=== PATIENT | female | born 1960 | race Caucasian/White ===

== ENCOUNTER → 2016-02-29 | Outpatient (CLI) | payer MEDICAID ==
--- NOTE | 2016-03-02 10:12 | MM ---
Reason for exam: screening (asymptomatic). Last mammogram was performed 4 years and 1 month ago. History: Patient is postmenopausal. Physical Findings: A clinical breast exam by your physician is recommended on an annual basis and results should be correlated with mammographic findings. MG 3D Screening Mammo W/Cad Bilateral CC and MLO view(s) were taken. Prior study comparison: January 25, 2012, bilateral digital screening mammo w/CAD. May 19, 2005, bilateral screening mammogram w/CAD. There are scattered fibroglandular densities. Asymmetric breast tissue greater in the left breast. Focal asymmetry left subareolar position. ASSESSMENT: Benign, BI-RAD 2 RECOMMENDATION: Routine screening mammogram of both breasts in 1 year.
== END | disposition home or self-care (01) ==
LOC: RADMAMWWP 10:42
PROVIDERS: ATTEND Family Medicine
DX: Z12.31 Encounter for screening mammogram for malignant neoplasm of breast (principal)
CPT/HCPCS: 77052; 77063; G0202

== ENCOUNTER → 2016-09-12 | Outpatient (CLI) | payer MEDICAID ==
[2016-09-12 10:04] LABS: Basophils # (A) 0.1 k/uL (0-0.2); Basophils % (A) 1 %; CH 31.6; CHCM 33.4; Eosinophils # (A) 0.2 k/uL (0-0.7); Eosinophils % (A) 2 %; HCT 42.2 % (34.0-46.0); HDW 2.14; HGB 14.6 gm/dL (11.4-16.0); Luc # (Auto) 0.18; Luc % (Auto) 3; Lymphocytes # (A) 2.5 k/uL (1.0-4.8); Lymphocytes % (A) 35 %; MCH 32.9 pg (25.0-35.0); MCHC 34.6 g/dL (31.0-37.0); MCV 95.1 fL (80.0-100.0); Mean Platelet Volume 7.1; Monocytes # (A) 0.4 k/uL (0-1.0); Monocytes % (A) 6 %; Neutrophils # (A) 3.9 k/uL (1.3-7.7); Neutrophils % (A) 54 %; RBC 4.44 m/uL (3.80-5.40); RDW 13.3 % (11.5-15.5); WBC 7.1 k/uL (3.8-10.6); WBC (Perox) 6.86
[2016-09-12 10:08] LABS: Anion Gap 10 mmol/L; Blood Urea Nitrogen 14 mg/dL (7-17); C Reactive Protein <5.0 mg/L (<10.0); Calcium 9.4 mg/dL (8.4-10.2); Carbon Dioxide 27 mmol/L (22-30); Chloride 104 mmol/L (98-107); Glucose 90 mg/dL (74-99); Non-African American GFR(MDRD) >60 (>60 ml/min/1.73 sqM); Potassium 4.5 mmol/L (3.5-5.1); Rheumatoid Factor, Qnt 11 IU/mL (<12); Sodium 141 mmol/L (137-145); Uric Acid 3.2 mg/dL (3.7-7.4)
[2016-09-12 12:15] LABS: Erythrocyte Sedimentation Rate 8 mm/hr (0-20)
[2016-09-12 16:19] LABS: ANA w/Reflex to Titer NEGATIVE (NEGATIVE); Cyclic Citrull Pep IgG Unit <0.5 U/mL; Cyclic Citrullinated Pep IgG NEGATIVE (NEGATIVE)
== END | disposition home or self-care (01) ==
LOC: LABWHC1 09:26
PROVIDERS: ATTEND Family Medicine
DX: M13.0 Polyarthritis, unspecified (principal); I10 Essential (primary) hypertension
CPT/HCPCS: 36415; 80048; 84550; 85025; 85652; 86038; 86140; 86200; 86431

== ENCOUNTER → 2017-02-17 | Outpatient (CLI) | payer MEDICAID ==
--- NOTE | 2017-02-17 15:04 | MR ---
EXAMINATION TYPE: MR shoulder LT wo con DATE OF EXAM: 02/17/2017 COMPARISON: NONE HISTORY: Left Shoulder pain x3 months TECHNIQUE: Multiplanar, multisequence imaging of the left shoulder is performed without contrast. FINDINGS: Rotator Cuff: There is abnormal signal at the level of the posterior insertion of the infraspinatus t endon compatible with partial full-thickness tear, there is also tendinosis, fluid signal courses veronica ng the musculotendinous junction of infraspinatus. Some fluid signal courses in the subacromial subde ltoid bursa and also within the musculotendinous junction of supraspinatus Acromioclavicular Joint: Hypertrophic changes present causing some minimal mass effect on the musculo tendinous junction of supraspinatus. Glenohumeral Joint: Intact Labrum: The labrum appears grossly intact given limitation of non-arthrogram study. Biceps Tendon: Fluid signal courses along the biceps tendon which shows a normal position in the bici pital groove compatible with biceps tendinosis. Bone marrow signal: Some pseudocysts present at the posterior humeral head. Other: No additional significant abnormality is appreciated. IMPRESSION: Partial full-thickness tear of the infraspinatus tendon, biceps tendinosis, rotator cuff tendinosis. Correlate for impingement.
== END | disposition home or self-care (01) ==
LOC: RADMRIMAIN 07:07
PROVIDERS: ATTEND Family Medicine
DX: S46.812A Strain of other muscles, fascia and tendons at shoulder and upper arm level, left arm, initial encounter (principal); M67.814 Other specified disorders of tendon, left shoulder

== ENCOUNTER → 2017-09-01 | Outpatient (CLI) | payer MEDICAID ==
[2017-09-01 09:46] LABS: HCT 44.8 % (34.0-46.0); HGB 15.1 gm/dL (11.4-16.0); MCH 31.4 pg (25.0-35.0); MCHC 33.7 g/dL (31.0-37.0); MCV 93.2 fL (80.0-100.0); Mean Platelet Volume 6.6; Platelet Count 351 k/uL (150-450); RBC 4.81 m/uL (3.80-5.40); RDW 13.1 % (11.5-15.5); WBC 7.4 k/uL (3.8-10.6)
[2017-09-01 09:55] LABS: Appearance,Urine Cloudy (Clear); Bacteria,Urine Occasional /hpf; Bilirubin,Urine Negative (Negative); Blood,Urine Moderate (Negative); Color,Urine Yellow; Glucose,Urine (UA) Negative (Negative); Ketones,Urine Trace (Negative); Leukocyte Esterase,Urine Large (Negative); Mucus,Urine Many /hpf; Nitrite,Urine Negative (Negative); PH, Urine 5.5 (5.0-8.0); Protein,Urine 1+ (Negative); RBC,Urine 13 /hpf (0-5); Squamous Epithelial Cell,Urine 12 /hpf (0-4); WBC,Urine 58 /hpf (0-5)
[2017-09-01 10:01] LABS: Carbon Dioxide 29 mmol/L (22-30); Chloride 105 mmol/L (98-107); Glucose 90 mg/dL (74-99); Potassium 5.6 mmol/L (3.5-5.1); Sodium 140 mmol/L (137-145)
[2017-09-01 10:02] LABS: ALT 43 U/L (9-52); AST 31 U/L (14-36); Anion Gap 6 mmol/L; Blood Urea Nitrogen 21 mg/dL (7-17); Calcium 9.8 mg/dL (8.4-10.2); Cholesterol 232 mg/dL (<200); HDL Cholesterol 67 mg/dL (40-60); LDL Cholesterol,Calculated 143 mg/dL (0-99); Triglycerides 108 mg/dL (<150)
== END | disposition home or self-care (01) ==
LOC: LABWHC1 09:27
PROVIDERS: ATTEND Family Medicine
DX: I10 Essential (primary) hypertension (principal); E78.5 Hyperlipidemia, unspecified; R31.1 Benign essential microscopic hematuria
CPT/HCPCS: 36415; 80048; 80061; 81001; 84450; 84460; 85027

== ENCOUNTER → 2017-09-04 | Outpatient (CLI) | payer MEDICAID ==
[2017-09-04 09:57] LABS: Anion Gap 8 mmol/L; Blood Urea Nitrogen 24 mg/dL (7-17); Calcium 9.5 mg/dL (8.4-10.2); Carbon Dioxide 27 mmol/L (22-30); Chloride 106 mmol/L (98-107); Glucose 92 mg/dL (74-99); Potassium 5.4 mmol/L (3.5-5.1); Sodium 141 mmol/L (137-145)
== END | disposition home or self-care (01) ==
LOC: LABWHC1 08:53
PROVIDERS: ATTEND Family Medicine
DX: R89.9 Unspecified abnormal finding in specimens from other organs, systems and tissues (principal)
CPT/HCPCS: 36415; 80048; 87086

== ENCOUNTER → 2017-09-19 | Outpatient (CLI) | payer MEDICAID ==
[2017-09-19 09:32] LABS: Anion Gap 6 mmol/L; Blood Urea Nitrogen 16 mg/dL (7-17); Calcium 9.6 mg/dL (8.4-10.2); Carbon Dioxide 30 mmol/L (22-30); Chloride 104 mmol/L (98-107); Glucose 99 mg/dL (74-99); Potassium 4.8 mmol/L (3.5-5.1); Sodium 140 mmol/L (137-145)
== END | disposition home or self-care (01) ==
LOC: LABWHC1 08:48
PROVIDERS: ATTEND Family Medicine
DX: E87.5 Hyperkalemia (principal)
CPT/HCPCS: 36415; 80048

== ENCOUNTER → 2018-06-19 | Outpatient (CLI) | payer MEDICAID ==
[2018-06-19 10:08] LABS: Basophils # (A) 0.1 k/uL (0-0.2); Basophils % (A) 1 %; Eosinophils # (A) 0.3 k/uL (0-0.7); Eosinophils % (A) 4 %; HCT 42.1 % (34.0-46.0); HGB 13.7 gm/dL (11.4-16.0); Lymphocytes # (A) 2.9 k/uL (1.0-4.8); Lymphocytes % (A) 41 %; MCH 30.9 pg (25.0-35.0); MCHC 32.4 g/dL (31.0-37.0); MCV 95.2 fL (80.0-100.0); Mean Platelet Volume 7.1; Monocytes # (A) 0.3 k/uL (0-1.0); Monocytes % (A) 5 %; Neutrophils # (A) 3.2 k/uL (1.3-7.7); Neutrophils % (A) 46 %; Platelet Count 322 k/uL (150-450); RBC 4.43 m/uL (3.80-5.40); RDW 13.1 % (11.5-15.5)
[2018-06-19 18:09] LABS: Vitamin D 25 Hydroxy 25.2 ng/mL (30.0-100.0)
[2018-06-19 18:20] LABS: Anion Gap 10.1 mmol/L (4.00-12.00); Calcium 9.3 mg/dL (8.7-10.3); Carbon Dioxide 23.9 mmol/L (21.6-31.8); Potassium 4.4 mmol/L (3.5-5.5)
[2018-06-19 18:23] LABS: Hepatitis C IgG Antibody Non-Reactive (Non-Reactive)
== END | disposition home or self-care (01) ==
LOC: LABWHC1 08:17
PROVIDERS: ATTEND Family Medicine
DX: I10 Essential (primary) hypertension (principal); Z13.9 Encounter for screening, unspecified
CPT/HCPCS: 36415; 80048; 82306; 84450; 84460; 85025; 86803

== ENCOUNTER → 2019-10-08 | Outpatient (CLI) | payer MEDICAID ==
[2019-10-08 12:36] LABS: Basophils # (A) 0.1 k/uL (0-0.2); Basophils % (A) 1 %; Eosinophils # (A) 0.2 k/uL (0-0.7); Eosinophils % (A) 3 %; HCT 46.8 % (34.0-46.0); HGB 14.7 gm/dL (11.4-16.0); Lymphocytes # (A) 3.1 k/uL (1.0-4.8); Lymphocytes % (A) 40 %; MCHC 31.4 g/dL (31.0-37.0); MCV 95.5 fL (80.0-100.0); Mean Platelet Volume 7.5; Monocytes # (A) 0.5 k/uL (0-1.0); Monocytes % (A) 6 %; Neutrophils # (A) 3.7 k/uL (1.3-7.7); Neutrophils % (A) 47 %; Platelet Count 357 k/uL (150-450); RBC 4.91 m/uL (3.80-5.40); RDW 12.6 % (11.5-15.5); WBC 7.8 k/uL (3.8-10.6)
[2019-10-08 20:43] LABS: African American GFR (CKD) 92.9 (60.0-200.0); Anion Gap 10.6 mmol/L (4.00-12.00); BUN/Creat Ratio 27.5 Ratio (12.00-20.00); Calcium 9.7 mg/dL (8.7-10.3); Carbon Dioxide 25.4 mmol/L (21.6-31.8); Chol/HDL Ratio 3.56; LDL Cholesterol,Calculated 136.8 mg/dL (0.0-131.0); Non-African American GFR(CKD) 80.1 (60.0-200.0); Potassium 4.7 mmol/L (3.5-5.5); VLDL Calculation 24.2 mg/dL (5.00-40.00)
[2019-10-08 22:22] LABS: Hemoglobin A1C 5.8 % (4.0-6.0)
== END | disposition home or self-care (01) ==
LOC: LABWHC1 11:24
PROVIDERS: ATTEND Family Medicine
DX: I10 Essential (primary) hypertension (principal); E66.9 Obesity, unspecified; E55.9 Vitamin D deficiency, unspecified; E78.5 Hyperlipidemia, unspecified
CPT/HCPCS: 36415; 80048; 80061; 82306; 83036; 84443; 84450; 84460; 85025

== ENCOUNTER → 2020-04-19 | Outpatient (CLI) | payer MEDICAID ==
[2020-04-19 08:57] LABS: Appearance,Urine Clear (Clear); Bilirubin,Urine Negative (Negative); Blood,Urine Moderate (Negative); Color,Urine Yellow; Glucose,Urine (UA) Negative (Negative); Hyaline Casts,Urine 1 /lpf (0-2); Ketones,Urine Trace (Negative); Leukocyte Esterase,Urine Moderate (Negative); Mucus,Urine Moderate /hpf; Nitrite,Urine Negative (Negative); PH, Urine 5.5 (5.0-8.0); Protein,Urine Trace (Negative); RBC,Urine 8 /hpf (0-5); Specific Gravity,Urine 1.032 (1.001-1.035); Squamous Epithelial Cell,Urine 1 /hpf (0-4); Urobilinogen,Urine <2.0 mg/dL (<2.0); WBC,Urine 9 /hpf (0-5)
[2020-04-19 15:02] LABS: HCT 43.8 % (37.2-46.3); HGB 14.1 g/dL (12.0-15.0); MCH 31.2 pg (27.0-32.0); MCHC 32.2 g/dL (32.0-37.0); MCV 96.9 fL (80.0-97.0); Platelet Count 361 X 10*3/uL (140-440); RBC 4.52 X 10*6/uL (4.10-5.20); WBC 6.82 X 10*3/uL (4.50-10.00)
[2020-04-19 15:51] LABS: African American GFR (CKD) 92.2 (60.0-200.0); Anion Gap 7.7 mmol/L (4.00-12.00); BUN/Creat Ratio 28.75 Ratio (12.00-20.00); Calcium 9.4 mg/dL (8.7-10.3); Carbon Dioxide 26.3 mmol/L (21.6-31.8); Chol/HDL Ratio 3.95; LDL Cholesterol,Calculated 144.8 mg/dL (0.0-131.0); Non-African American GFR(CKD) 79.6 (60.0-200.0); Potassium 4.8 mmol/L (3.5-5.5); VLDL Calculation 17.2 mg/dL (5.00-40.00)
[2020-04-19 19:18] LABS: Hemoglobin A1C 5.7 % (4.0-6.0)
== END | disposition home or self-care (01) ==
LOC: LABWHC1 08:16
PROVIDERS: ATTEND Family Medicine
DX: E55.9 Vitamin D deficiency, unspecified (principal); I10 Essential (primary) hypertension; E66.3 Overweight
CPT/HCPCS: 36415; 80048; 80061; 81001; 82306; 83036; 84450; 84460; 85027

== ENCOUNTER → 2020-07-07 | Outpatient (CLI) | payer MEDICAID ==
--- NOTE | 2020-07-08 14:52 | MM ---
Reason for exam: screening (asymptomatic). Last mammogram was performed 4 years and 4 months ago. History: Patient is postmenopausal. Physical Findings: A clinical breast exam by your physician is recommended on an annual basis and results should be correlated with mammographic findings. MG 3D Screening Mammo W/Cad Bilateral CC and MLO view(s) were taken. Prior study comparison: February 29, 2016, bilateral MG 3d screening mammo w/cad. January 25, 2012, bilateral digital screening mammo w/CAD. The breast tissue is heterogeneously dense. This may lower the sensitivity of mammography. Stable benign calcifications. There is no discrete abnormality. No significant changes when compared with prior studies. ASSESSMENT: Benign, BI-RAD 2 RECOMMENDATION: Routine screening mammogram of both breasts in 1 year.
== END | disposition home or self-care (01) ==
LOC: RADMAMWWP 07:37
PROVIDERS: ATTEND Obstetrics & Gynecology
DX: Z12.31 Encounter for screening mammogram for malignant neoplasm of breast (principal); Z78.0 Asymptomatic menopausal state
CPT/HCPCS: 77063; 77067

== ENCOUNTER → 2021-01-04 | Outpatient (CLI) | payer MEDICAID ==
[2021-01-04 13:02] LABS: Appearance,Urine Clear (Clear); Bilirubin,Urine Negative (Negative); Blood,Urine Moderate (Negative); Color,Urine Yellow; Glucose,Urine (UA) Negative (Negative); Hyaline Casts,Urine 3 /lpf (0-2); Ketones,Urine Negative (Negative); Leukocyte Esterase,Urine Small (Negative); Mucus,Urine Many /hpf; Nitrite,Urine Negative (Negative); PH, Urine 5.5 (5.0-8.0); Protein,Urine Trace (Negative); RBC,Urine 10 /hpf (0-5); Specific Gravity,Urine 1.036 (1.001-1.035); Squamous Epithelial Cell,Urine 2 /hpf (0-4); Urobilinogen,Urine <2.0 mg/dL (<2.0); WBC,Urine 6 /hpf (0-5)
[2021-01-04 15:13] LABS: Basophils # (A) 0.05 X 10*3/uL (0.00-0.10); Basophils % (A) 0.8 %; Eosinophils # (A) 0.26 X 10*3/uL (0.04-0.35); Eosinophils % (A) 4.1 %; HCT 44.3 % (37.2-46.3); HGB 13.9 g/dL (12.0-15.0); Lymphocytes # (A) 2.74 X 10*3/uL (0.90-5.00); Lymphocytes % (A) 42.9 %; MCH 30.9 pg (27.0-32.0); MCHC 31.4 g/dL (32.0-37.0); MCV 98.4 fL (80.0-97.0); Mean Platelet Volume 10.1 fL (9.5-12.2); Monocytes # (A) 0.62 X 10*3/uL (0.20-1.00); Monocytes % (A) 9.7 %; Neutrophils # (A) 2.71 X 10*3/uL (1.80-7.70); Neutrophils % (A) 42.3 %; Platelet Count 369 X 10*3/uL (140-440); RDW 12.6 % (11.5-14.5); WBC 6.39 X 10*3/uL (4.50-10.00)
[2021-01-04 18:49] LABS: ALT 19 U/L (8-44); AST 19 U/L (13-35); African American GFR (CKD) 108.4 (60.0-200.0); BUN/Creat Ratio 29.71 Ratio (12.00-20.00); Blood Urea Nitrogen 20.8 mg/dL (9.0-27.0); Calcium 9.3 mg/dL (8.7-10.3); Carbon Dioxide 22.4 mmol/L (21.6-31.8); Chloride 103 mmol/L (96-109); Chol/HDL Ratio 3.17 Ratio; Glucose 85 mg/dL (70-110); LDL Cholesterol,Calculated 132.1 mg/dL (0.0-131.0); Non-African American GFR(CKD) 93.5 (60.0-200.0); Potassium 5.4 mmol/L (3.5-5.5); Sodium 139 mmol/L (135-145); VLDL Calculation 16.36 mg/dL (5.00-40.00)
== END | disposition home or self-care (01) ==
LOC: LABWHC1 09:01
PROVIDERS: ATTEND Family Medicine
DX: Z00.00 Encounter for general adult medical examination without abnormal findings (principal); I10 Essential (primary) hypertension; E78.5 Hyperlipidemia, unspecified
CPT/HCPCS: 36415; 80048; 80061; 81001; 84450; 84460; 85025

== ENCOUNTER 2021-08-18 12:19 | Emergency (ER) | payer MEDICAID ==
[2021-08-18 13:01] VITALS: BP 112/72; PULSE 118; RESP 20; TEMP 97.9
--- NOTE | 2021-08-18 13:01 | ED ---
Female Urogenital HPI <Mehdi Perez - Last Filed: 08/18/21 12:59> <FlaquitoraghavendraDesmond Mccann - Last Filed: 08/18/21 16:23> - General Stated complaint: Female - History of Present Illness Initial comments: Medical screening exam: Brief history: 61-year-old female presents to the emergency for skin infection in the genital area. Patient states she first noticed it 2 days ago. She states that the area of swelling and redness measured approximately 3 x 3 cm. Yesterday she attempted to try to drain it by incising it. She states that some purulent fluid was draining however symptoms did not improve over the next several hours. Patient has any history of diabetes. Focused physical exam: Well-appearing, no acute distress, neurologically intact, no gross focal neurologic deficit A medical screening exam was performed and at this time the patient does not have an emergency medical condition that requires immediate intervention. The patient is currently hemodynamically stable and should wait for a complete history and physical and appropriate diagnostic testing. (Mehdi Perez) - Related Data Home Medications Medication Instructions Recorded Confirmed ALPRAZolam [Xanax] 0.25 mg PO BID PRN 05/08/15 07/13/15 HYDROcodone/APAP 10-325MG [[place]berg 1 tab PO Q6H PRN 05/08/15 07/13/15 10-325] Ibuprofen [Motrin] 800 mg PO Q6HR PRN 05/08/15 07/09/15 lisinopriL [Zestril] 10 mg PO DAILY 05/08/15 07/13/15 Dextroamphetamine/Amphetamine 20 mg PO DAILY 05/21/15 07/13/15 [Adderall] Previous Rx's Medication Instructions Recorded Cephalexin [Keflex] 500 mg PO QID #40 cap 08/18/21 Sulfamethox-Tmp 800-160Mg [Bactrim 1 tab PO Q12HR #20 tab 08/18/21 DS 800-160 mg] Allergies Allergy/AdvReac Type Severity Reaction Status Date / Time No Known Allergies Allergy Verified 07/09/15 14:54 Review of Systems ROS Other: All systems not noted in ROS Statement are negative. <Mehdi Perez - Last Filed: 08/18/21 12:59> ROS Other: All systems not noted in ROS Statement are negative. <Desmond Ray - Last Filed: 08/18/21 16:23> ROS Statement: Those systems with pertinent positive or pertinent negative responses have been documented in the HPI. Past Medical History Past Medical History: Hyperlipidemia, Hypertension Additional Past Medical History / Comment(s): rectal bleeding History of Any Multi-Drug Resistant Organisms: None Reported Past Surgical History: Section, Orthopedic Surgery, Tonsillectomy Additional Past Surgical History / Comment(s): nichole bunionectomy Past Anesthesia/Blood Transfusion Reactions: Motion Sickness Past Psychological History: Anxiety Past Alcohol Use History: Rare Additional Past Alcohol Use History / Comment(s): quit smoking 11 yrs ago, smoked for 35 yrs- 1PPD Past Drug Use History: None Reported - Past Family History Mother Family Medical History: No Reported History <Mehdi Perez - Last Filed: 08/18/21 12:59> General Exam General appearance: alert, in no apparent distress Head exam: Present: atraumatic, normocephalic Eye exam: Present: normal appearance Respiratory exam: Present: normal lung sounds bilaterally. Absent: respiratory distress, wheezes Cardiovascular Exam: Present: regular rate, normal rhythm GI/Abdominal exam: Present: soft. Absent: distended, tenderness External exam: Present: other (Abscess on the mons glucose, with surrounding cellulitis, fluctuant area is approximately 2 cm x 2 cm with an additional 6 cm of surrounding cellulitis and induration) Neurological exam: Present: alert, normal gait Psychiatric exam: Present: normal affect, normal mood <Desmond Ray - Last Filed: 08/18/21 16:23> Course Vital Signs 08/18/21 12:59 Temperature 97.9 F Pulse Rate 118 H Respiratory 20 Rate Blood Pressure 112/72 O2 Sat by Pulse 98 Oximetry Procedures - Incision & Drainage Consent Obtained: verbal consent Site: vulva/vagina I&D Cleaning Method: Chloroprep Sterile Field Used?: Yes Scalpel Used: #11 Needle Aspiration Performed?: No Irrigation Performed?: No I&D Drainage Obtained: Pus Packing: Iodoform <Desmond Ray - Last Filed: 08/18/21 16:23> Medical Decision Making <Desmond Ray - Last Filed: 08/18/21 16:23> - Medical Decision Making 59-year-old female with abscess in the mons pubis region. There is significant surrounding induration and cellulitis. The central portion is approximately 2 cm x 2 cm with central fluctuance. I&D is performed in the emergency department with purulent drainage. Iodoform packing is placed. The patient started on antibiotics and given return parameters. (Desmond Ray) Disposition <Mehdi Perez - Last Filed: 08/18/21 12:59> Is patient prescribed a controlled substance at d/c from ED?: No <Desmond Ray - Last Filed: 08/18/21 16:23> Clinical Impression: Abscess Disposition: HOME SELF-CARE Condition: Good Instructions (If sedation given, give patient instructions): Abscess Incision and Drainage (ED), Abscess (ED) Prescriptions: Sulfamethox-Tmp 800-160Mg [Bactrim DS 800-160 mg] 1 tab PO Q12HR #20 tab Cephalexin [Keflex] 500 mg PO QID #40 cap Referrals: Vinay Hill DO [Primary Care Provider] - 1-2 days
== END 2021-08-18 16:32 | disposition home or self-care (01) ==
LOC: EC 12:19
DX: L02.215 Cutaneous abscess of perineum (principal); L03.315 Cellulitis of perineum; I10 Essential (primary) hypertension; E78.5 Hyperlipidemia, unspecified; Z79.899 Other long term (current) drug therapy
CPT/HCPCS: 99282

== ENCOUNTER → 2021-09-14 | Outpatient (CLI) | payer MEDICAID ==
[2021-09-14 14:50] LABS: African American GFR (CKD) 91.6 (60.0-200.0); BUN/Creat Ratio 26.5 Ratio (12.00-20.00); Blood Urea Nitrogen 21.2 mg/dL (9.0-27.0); Calcium 9.2 mg/dL (8.7-10.3); Potassium 4.6 mmol/L (3.5-5.5)
== END | disposition home or self-care (01) ==
LOC: LABWHC1 07:35
PROVIDERS: ATTEND Family Medicine
DX: I10 Essential (primary) hypertension (principal); E55.9 Vitamin D deficiency, unspecified
CPT/HCPCS: 36415; 80048; 82306

== ENCOUNTER → 2021-10-25 | Outpatient (CLI) | payer MEDICAID ==
--- NOTE | 2021-10-26 13:42 | MM ---
Reason for Exam: Screening (asymptomatic). Last mammogram was performed 1 year(s) and 4 month(s) ago. Patient History: Menarche at age 10. First Full-Term at age 22. Postmenopausal. Risk Values: Christa 5 year model risk: 1.5%. NCI Lifetime model risk: 6.8%. Prior Study Comparison: 01/25/2012 Bilateral Screening Mammogram, [facility]. 02/29/2016 Bilateral Screening Mammogram, [facility]. 07/07/2020 Bilateral Screening Mammogram, [facility]. Tissue Density: The breast tissue is heterogeneously dense. This may lower the sensitivity of mammography. Findings: Analyzed By CAD. No significant changes when compared with prior studies. Benign calcifications. No discrete abnormality. Overall Assessment: Benign, BI-RAD 2 Management: Screening Mammogram of both breasts in 1 year. A clinical breast exam by your physician is recommended on an annual basis and results should be correlated with mammographic findings. Electronically signed and approved by: Ruben Florence M.D. Radiologis
== END | disposition home or self-care (01) ==
LOC: RADMAMWWP 09:45
PROVIDERS: ATTEND Obstetrics & Gynecology
DX: Z12.31 Encounter for screening mammogram for malignant neoplasm of breast (principal); Z78.0 Asymptomatic menopausal state
CPT/HCPCS: 77063; 77067

== ENCOUNTER → 2021-12-27 | Outpatient (CLI) | payer MEDICAID ==
--- NOTE | 2021-12-27 16:01 | XR ---
EXAMINATION TYPE: XR lumbosacral spine min 4V DATE OF EXAM: 12/27/2021 COMPARISON: None HISTORY: Intervertebral disc degeneration, low back pain TECHNIQUE: 5 view lumbar spine FINDINGS: Scoliosis is present. There are 5 lumbar-type vertebral bodies. Pedicles are intact. Facet degenerative changes are present. No suspicious spondylolytic defects are evident. There is loss of d isc height L5-S1. There is diffuse loss of disc height L2- 3 level. Posterior disc space narrowing is present L3-4 and to a mild degree L4-5. Vascular calcifications in the aorta. IMPRESSION: 1. Degenerative disc changes greatest at L2-3 and L5-S1. 2. Scoliosis.
--- NOTE | 2021-12-27 16:05 | XR ---
EXAMINATION TYPE: XR cervical spine comp DATE OF EXAM: 12/27/2021 COMPARISON: None HISTORY: Cervical disc degeneration TECHNIQUE: 5 view cervical spine FINDINGS: Prevertebral space is normal. Mild disc space narrowing is present C5-6. Some posterior C6- 7 disc space narrowing is present. Posterior spinal lamellar line is intact. Vertebral body heights a re preserved. Odontoid is limited with overlying occiput. Neural foramen appear patent. IMPRESSION: 1. Degenerative disc change C5-6 C6-7.
--- NOTE | 2021-12-27 16:05 | XR ---
EXAMINATION TYPE: XR pelvis AP view DATE OF EXAM: 12/27/2021 COMPARISON: None HISTORY: Left hip pain TECHNIQUE: AP pelvis FINDINGS: Femoral heads articulate with the acetabulum. Symphysis pubis and sacroiliac joints are nor mal. Normal bowel gas is present. IMPRESSION: 1. No acute osseous abnormality. Pelvis
--- NOTE | 2021-12-27 16:10 | XR ---
EXAMINATION TYPE: XR hand limited bilateral DATE OF EXAM: 12/27/2021 COMPARISON: None HISTORY: Osteoarthritis TECHNIQUE: Limited hands were performed bilaterally. Additional oblique views were inadvertently obta ined. FINDINGS: There is some degenerative joint changes of the distal index fingers and distal middle fing ers. Mild diffuse joint space narrowing is present maintained joint spaces. No acute fractures are identified. Soft tissues are normal. IMPRESSION: 1. Diffuse osteoarthritic degenerative change bilateral hands. This is slightly more advanced distal index fingers bilaterally.
[2021-12-27 18:39] LABS: ALT 18 U/L (8-44); AST 17 U/L (13-35); African American GFR (CKD) 91.9 (60.0-200.0); BUN/Creat Ratio 18.92 Ratio (12.00-20.00); Basophils # (A) 0.05 X 10*3/uL (0.00-0.10); Basophils % (A) 0.6 %; Blood Urea Nitrogen 15.1 mg/dL (9.0-27.0); Calcium 9.4 mg/dL (8.7-10.3); Chloride 101 mmol/L (96-109); Creatine Kinase 33 U/L (26-186); Eosinophils # (A) 0.13 X 10*3/uL (0.04-0.35); Eosinophils % (A) 1.7 %; Glucose 96 mg/dL (70-110); HCT 44.7 % (37.2-46.3); HGB 14.1 g/dL (12.0-15.0); Immature Grans, Automated 0.1 %; Lymphocytes # (A) 2.66 X 10*3/uL (0.90-5.00); Lymphocytes % (A) 34.3 %; MCH 30.7 pg (27.0-32.0); MCHC 31.5 g/dL (32.0-37.0); MCV 97.2 fL (80.0-97.0); Mean Platelet Volume 9.9 fL (9.5-12.2); Monocytes # (A) 0.46 X 10*3/uL (0.20-1.00); Monocytes % (A) 5.9 %; NRBC Per 100 WBC 0 /100 WBCS (0.0-0.0); Neutrophils # (A) 4.44 X 10*3/uL (1.80-7.70); Neutrophils % (A) 57.4 %; Non-African American GFR(CKD) 79.3 (60.0-200.0); Platelet Count 344 X 10*3/uL (140-440); Potassium 4.4 mmol/L (3.5-5.5); RDW 12.3 % (11.5-14.5); Sodium 139 mmol/L (135-145); Uric Acid 3.1 mg/dL (2.9-7.7); WBC 7.75 X 10*3/uL (4.50-10.00)
[2021-12-27 19:02] LABS: C Reactive Protein <0.30 mg/dL (0.00-0.80); Rheumatoid Factor, Qnt 11 IU/mL (0-15)
[2021-12-27 20:29] LABS: Cyclic Citrull Pep IgG Unit <0.5 U/mL; Cyclic Citrullinated Pep IgG NEGATIVE (NEGATIVE)
[2021-12-27 21:14] LABS: Erythrocyte Sedimentation Rate 6 mm/Hr (0-30)
[2021-12-28 13:56] LABS: HLA B27 NEGATIVE
[2021-12-28 15:19] LABS: Angiotensin-1 Converting Enz. 6 U/L (8-52)
== END | disposition home or self-care (01) ==
LOC: LABWHC1 12:33
PROVIDERS: ATTEND Internal Medicine Rheumatology
DX: M13.0 Polyarthritis, unspecified (principal); M50.30 Other cervical disc degeneration, unspecified cervical region; M51.36 Other intervertebral disc degeneration, lumbar region; M25.552 Pain in left hip
CPT/HCPCS: 36415; 72050; 72110; 72170; 80048; 82164; 82306; 82550; 83520; 84439; 84443; 84450; 84460; 84550; 85025; 85652; 86038; 86140; 86200; 86431; 86812

== ENCOUNTER → 2022-01-04 | Outpatient (CLI) | payer MEDICAID ==
--- NOTE | 2022-01-05 13:50 | MR ---
EXAMINATION TYPE: MR cspine/lspine wo con DATE OF EXAM: 01/04/2022 6:50 PM CLINICAL INDICATION:Female, 61 years old with history of M54.16 Radiculopathy lumbar region M54.12 Ra diculo; COMPARISON: MRI lumbar spine 07/25/2012 TECHNIQUE: Multi planar, multi sequence imaging was performed utilizing: T1-weighted, T2-weighted, a nd turbo inversion recovery imaging of the cervical and lumbar spine. MR contrast: IV Contrast: None. FINDINGS: CERVICAL: Alignment: The cervical vertebral bodies have preserved heights. Alignment is within normal limits gi popeye patient positioning. Bones: Mild degeneration Modic endplate changes are seen most pronounced at C5-C6. Multilevel degener ative disc disease is noted and most pronounced at the vertebral levels. Cord: The spinal cord is unremarkable with regards to their signal intensity and morphology. Discs: C2-C3: No significant disc pathology. The spinal canal is patent. No neural foraminal stenosis. C3-C4: No significant disc pathology. The spinal canal is patent. No neural foraminal stenosis. L2-L3 C4-C5: No significant disc pathology. The spinal canal is patent. Bilateral facet and uncovertebral joint arthropathy are present with mild right neural foraminal stenosis. The left neural foramen is p atent. C5-C6: A disc osteophyte complex is present which minimally narrows the ventral subarachnoid space. Bilateral facet and uncovertebral joint arthropathy are present with mild bilateral neural foraminal stenosis. C6-C7: No significant disc pathology. The spinal canal is patent. Bilateral facet and uncovertebral joint arthropathy are present with mild to moderate right and mild left neural foraminal stenosis. C7-T1: No significant disc pathology. The spinal canal is patent. No neural foraminal stenosis. Other: None. LUMBAR: Alignment: The lumbar vertebral bodies have preserved heights and alignment. Cord: The conus medullaris and the distal spinal cord appear unremarkable with regards to their signa l intensity and morphology. Bones/Discs: Scattered Modic endplate changes are seen throughout the lumbar spine most pronounced at L2-L3. Signal abnormality now on the involving the superior aspect of L1 and L3 are unchanged from 2 013 and may represent vertebral body hemangioma versus degeneration changes. Multilevel disc desicca tion is present. T12-L1 left central disc extrusion without significant spinal canal stenosis or neural foraminal sten osis. L1-L2: Osteophytes which narrow the ventral subarachnoid space. No significant spinal canal stenosis. The neural foramen are patent. L2-L3: Disc bulge and facet joint arthropathy result in in mild spinal canal stenosis and mild to mod erate bilateral neural foraminal stenosis. L3-L4: Disc bulge and facet joint arthropathy with out significant spinal canal stenosis. There is mi ld bilateral neural foraminal stenosis. L4-L5: No significant disc pathology. Spinal canal is patent. Facet joint arthropathy with mild bilat eral neural foraminal stenosis. L5-S1: No significant disc pathology. Spinal canal is patent. Facet joint arthropathy with moderate r ight and mild left neural foraminal stenosis. Right extraforaminal osteophyte which abuts right exiti ng nerve series 1401 image 3. Other findings: Multiple high T2 signal peripelvic cysts bilaterally. IMPRESSION: 1. No definitive evidence of disc herniation or significant spinal canal stenosis. 2. T12-L1 disc herniation without significant spinal canal neural foraminal stenosis. 3. L5-S1 extraforaminal osteophyte which abuts the exiting right L5-S1 nerve. This is worsened from 2 013.
== END | disposition home or self-care (01) ==
LOC: RADMRIMAIN 17:24
PROVIDERS: ATTEND Family Medicine
DX: M51.15 Intervertebral disc disorders with radiculopathy, thoracolumbar region (principal); M47.27 Other spondylosis with radiculopathy, lumbosacral region; M47.22 Other spondylosis with radiculopathy, cervical region; M99.74 Connective tissue and disc stenosis of intervertebral foramina of sacral region
CPT/HCPCS: 72141; 72148

== ENCOUNTER → 2022-01-17 | Outpatient (CLI) | payer MEDICAID ==
--- NOTE | 2022-01-17 15:43 | XR ---
EXAMINATION TYPE: XR knee complete bilateral DATE OF EXAM: 01/17/2022 COMPARISON: None HISTORY: Bilateral chronic knee pain TECHNIQUE: Bilateral knees 3 views each FINDINGS: Left knee: Joint spaces are preserved. No joint effusion is evident. No acute fracture is aeration is evident. Right knee: Joint spaces are preserved. No joint effusion is evident. No acute fractures or dislocati ons evident. IMPRESSION: 1. No acute osseous abnormalities bilateral knees. 2. No significant joint space narrowing by plain film. MRI can be performed as clinically indicated.
== END | disposition home or self-care (01) ==
LOC: RADXRMAIN 15:16
PROVIDERS: ATTEND Internal Medicine Rheumatology
DX: M17.0 Bilateral primary osteoarthritis of knee (principal)

== ENCOUNTER → 2022-06-06 | Outpatient (CLI) | payer MEDICAID ==
[2022-06-06 16:36] LABS: Anion Gap 9.3 mmol/L (10.00-18.00); Carbon Dioxide 27.7 mmol/L (20.0-27.5); Potassium 4.8 mmol/L (3.5-5.5)
[2022-06-06 16:55] LABS: Basophils # (A) 0.04 X 10*3/uL (0.00-0.10); Basophils % (A) 0.6 %; Eosinophils # (A) 0.18 X 10*3/uL (0.04-0.35); Eosinophils % (A) 2.8 %; HCT 45.7 % (37.2-46.3); HGB 14.1 g/dL (12.0-15.0); Immature Grans, Automated 0.2 %; Lymphocytes # (A) 2.81 X 10*3/uL (0.90-5.00); Lymphocytes % (A) 44.4 %; MCH 30.3 pg (27.0-32.0); MCHC 30.9 g/dL (32.0-37.0); MCV 98.1 fL (80.0-97.0); Mean Platelet Volume 10.3 fL (9.5-12.2); Monocytes # (A) 0.55 X 10*3/uL (0.20-1.00); Monocytes % (A) 8.7 %; NRBC Per 100 WBC 0 /100 WBCS (0.0-0.0); Neutrophils # (A) 2.74 X 10*3/uL (1.80-7.70); Neutrophils % (A) 43.3 %; Platelet Count 349 X 10*3/uL (140-440); RBC 4.66 X 10*6/uL (4.10-5.20); RDW 12.4 % (11.5-14.5); WBC 6.33 X 10*3/uL (4.50-10.00)
== END | disposition home or self-care (01) ==
LOC: LABPAT 09:58
PROVIDERS: ATTEND Orthopaedic Surgery
DX: M75.42 Impingement syndrome of left shoulder (principal)
CPT/HCPCS: 80051; 85025; 93005

== ENCOUNTER → 2022-06-14 | Day surgery (SDC) | payer MEDICAID ==
[2022-06-12 09:07] VITALS: BMI 28.3
--- NOTE | 2022-06-13 13:38 | HP ---
HISTORY AND PHYSICAL DATE OF SCHEDULED SURGERY: 06/14/2022. HISTORY OF PRESENT ILLNESS: Aletha Hernandez is a 62-year-old patient seen with progressive left shoulder pain. After having treatment options discussed, she elected to proceed with left shoulder arthroscopy. Consent regarding the procedure was obtained. PAST MEDICAL HISTORY: Hypertension. PAST SURGICAL HISTORY: Noncontributory. DAILY MEDICATIONS: 1. Lisinopril. 2. Tylenol. 3. Xanax. ALLERGIES: None. SOCIAL HISTORY: She denies tobacco use. PHYSICAL EVALUATION OF LEFT SHOULDER: Flexion is 90 degrees, abduction is 80 degrees. External rotation is 20 degrees with weakness. Tenderness along the anterior lateral acromion and rotator cuff insertion site. Impingement is positive at 80 degrees. Drop-arm sign is positive. Distal neurovascular exam is intact. RADIOGRAPHS: Left shoulder radiographs revealed a type 2 acromion, acromioclavicular joint osteoarthritis and cystic changes of the greater tuberosity. Left shoulder MRI revealed a partial rotator cuff tendon tear along with acromioclavicular joint osteoarthritis. IMPRESSION: 1. Left shoulder impingement with partial rotator cuff tear. 2. Left shoulder acromioclavicular joint osteoarthritis. 3. Left shoulder adhesive capsulitis. PLAN: Left shoulder arthroscopy with subacromial decompression, arthroscopic rotator cuff repair, possible Stephen procedure, lysis of adhesions, and debridement. MMODL / IJN: [id number] /
[~2022-06-14] MED LIST: DEXAMETHASONE SOD PHOSPHATE 4 MG/ML 1 ML VIAL IV ONE; DEXAMETHASONE SOD PHOSPHATE 4 MG/ML 1 ML VIAL ONE; HYDROmorphone 0.5 MG/0.5 ML SYRINGE IVP PRN; LACTATED RINGERS 1,000 ML IV SCH; LIDOCAINE 1% (10MG/ML) FOR IV START INTRADERMA PRN; LIDOCAINE 2% INJ 20 MG/ML (2 ML VIAL) ONE; MIDAZOLAM 2 MG/2 ML VIAL IVP ONE; MIDAZOLAM 2 MG/2 ML VIAL ONE; ONDANSETRON 4 MG/2 ML VIAL IVP ONE; PROPOFOL 10 MG/ML 20 ML VIAL IV ONE; ROPIVACAINE 5 MG/ML 30 ML VIAL ONE; SUCCINYLCHOLINE CHLORIDE 200 MG/10 ML VIAL IV ONE; fentaNYL (PF) 50 MCG/ML 2 ML AMP ONE
--- NOTE | 2022-06-14 07:33 | P.ANPRN ---
Procedure Note - Anesthesia - Nerve Block Performed Left Interscalene Single Date of Procedure: 06/14/22 Procedure Start Time: 06:46 Procedure Stop Time: 06:54 Indication: Acute Post-Operative Pain, Requested by Surgeon Sedation Type: Sedate with meaningful contact maintained Preparation: Sterile Prep Position: Supine Needle Types: Pajunk Needle Gauge: 21 Ultrasound used to visualize needle placement: Yes Ultrasound used to observe medication spread: Yes Injectate: 0.5% Ropivacaine (see comment for volume) (25 mls with Decadron 4 mgs) Blood Aspirated: No Resistance on Injection: Normal Image Stored and Saved: Yes Events: Uneventful and Well Tolerated
--- NOTE | 2022-06-14 09:07 | P.OP ---
Date of Procedure: 06/14/22 Preoperative Diagnosis: Left shoulder impingement Postoperative Diagnosis: 1. Left shoulder rotator cuff tear 2. Left shoulder impingement 3. Left shoulder partial long head biceps tendon tear 4. Left shoulder superficial anterior labral tear 5. Left shoulder grade 4 glenohumeral joint osteoarthritis Procedure(s) Performed: 1. Left shoulder arthroscopic rotator cuff repair 2. Left shoulder arthroscopic subacromial decompression 3. Left shoulder arthroscopic biceps tenotomy 4. Left shoulder arthroscopic debridement superficial labral tear Implants: 1Arthrex 4.75 swivel lock anchor Anesthesia: GETA, regional (Interscalene block) Surgeon: Kiko Corona Tearoom Host #1: Seven Ramos Estimated Blood Loss (ml): 10 Pathology: none sent Condition: stable Disposition: PACU Indications for Procedure: 62-year-old patient seen with progressive left shoulder pain. After treatment options were discussed with her, she elected to proceed with arthroscopy. Operative Findings: See description of procedure Description of Procedure: Patient underwent an interscalene block by department of anesthesia. The patient was then taken to the operative suite. The patient underwent a general anesthetic by the department of anesthesia. The patient was placed into a lateral position and secured. There was appropriate padding of the bony prominence. Left shoulder was then prepped and draped in normal sterile orthopedic fashion. We placed the extremity in 10 pounds of longitudinal traction. A posterior incision was now made for a posterior working portal site. The trocar and cannula were inserted into the glenohumeral joint. Arthroscopy was initiated. Spinal needle was now inserted anteriorly, to ascertain the anterior working portal site. An incision was now made in that area, a trocar was inserted followed by a probe. There was partial tearing and hyperemia long head biceps tendon. There was superficial tearing of the anterior labrum. There was an area of grade 4 chondromalacia involving the anterior aspect of the glenoid fossa along with an area of grade 4 chondromalacia involving the central portion of the humeral head. Both areas were noted have exposed bone. There appeared be good osteochondral cartilage along the remaining areas of the glenohumeral joint. I debrided out the superficial labral tear anteriorly. I performed an arthroscopic biceps tenotomy. The residual labrum was again probed and was found to be stable. We again noted that area of grade 4 chondromalacia involving both the humeral head and glenoid fossa. The peripheral articular osteochondral cartilage appeared stable. At this point instruments removed from glenohumeral joint. Utilizing the posterior working portal site, the trocar and cannula were inserted into the subacromial space. Arthroscopy initiated. I made an incision 2 fingerbreadths lateral to the acromion. I introduced my trocar followed by my ArthroCare ablator. I now began ablating thick subacromial bursal tissue, which exposed the undersurface of the anterior acromion. There was diminished subacromial space. There was a very prominent anterior acromion. A motorized bur was introduced and a subacromial decompression was performed. I also excised some osteophytes off the inferior aspect of the distal clavicle. The AC joint was visualized and noted to be moderately arthritic, I did not think enough toward a Stephen procedure. I now turned my attention to the rotator cuff tendon. I noted a full-thickness perforation along the distal supraspinatus area. I debrided the margins getting down to stable tendon tissue. The tear/defect measured approximately 1.5 cm and was freely mobile over the footprint. I abraded the footprint with a motorized bur. With the assistance of Kristopher POLK now passed 3 everted mattress sutures through good bites of rotator cuff tendon. I punched on the footprint area for insertion of an anchor. All 6 limbs of suture were passed through the eyelet of a Arthrex 4.75 swivel lock anchor. I placed the eyelet into the pre-punch hole. I held it in position while Kristopher POLK tensioned all 6 limbs of suture and deployed the anchor with good fixation noted. All residual suture limbs were now clipped. We had good compression of the tendon along the entire footprint. Instruments now removed from the portal sites. All portal sites were approximated with nylon suture. Sterile dressings were applied followed by a shoulder sling. Seven POLK assisted in this complex case. The patient was awakened, transferred to a bed, and taken to recovery in stable condition.
[2022-06-14 09:11] VITALS: RESP 16; TEMP 97
[2022-06-14 11:19] VITALS: BP 108/75; PULSE 73
== END | disposition home or self-care (01) ==
LOC: OR 05:32
PROVIDERS: ATTEND Orthopaedic Surgery
DX: S46.112A Strain of muscle, fascia and tendon of long head of biceps, left arm, initial encounter (principal); M75.42 Impingement syndrome of left shoulder; M75.102 Unspecified rotator cuff tear or rupture of left shoulder, not specified as traumatic; M19.012 Primary osteoarthritis, left shoulder; I10 Essential (primary) hypertension; Z79.899 Other long term (current) drug therapy; X58.XXXA Exposure to other specified factors, initial encounter
CPT/HCPCS: 64415; 29826; 29827; C1713; C1894; J2250; J0330; J1100; J2405; J0690; J3010; J2795; J2704; J2001

== ENCOUNTER → 2023-01-05 | Outpatient (CLI) | payer MEDICAID ==
[2023-01-05 10:06] LABS: Appearance,Urine Clear (Clear); Bilirubin,Urine Negative (Negative); Blood,Urine Moderate (Negative); Color,Urine Yellow; Glucose,Urine (UA) Negative (Negative); Ketones,Urine 1+ (Negative); Leukocyte Esterase,Urine Negative (Negative); Mucus,Urine Few /hpf; Nitrite,Urine Negative (Negative); PH, Urine 5.5 (5.0-8.0); Protein,Urine Negative (Negative); RBC,Urine 9 /hpf (0-5); Specific Gravity,Urine 1.034 (1.001-1.035); Squamous Epithelial Cell,Urine 1 /hpf (0-4); Urobilinogen,Urine <2.0 mg/dL (<2.0); WBC,Urine 1 /hpf (0-5)
[2023-01-05 15:38] LABS: Basophils # (A) 0.06 X 10*3/uL (0.00-0.10); Eosinophils # (A) 0.23 X 10*3/uL (0.04-0.35); Eosinophils % (A) 3.7 %; HCT 44.7 % (37.2-46.3); HGB 14.2 g/dL (12.0-15.0); Lymphocytes # (A) 2.87 X 10*3/uL (0.90-5.00); Lymphocytes % (A) 45.6 %; MCH 31.1 pg (27.0-32.0); MCHC 31.8 g/dL (32.0-37.0); Mean Platelet Volume 10.5 FL (9.5-12.2); Monocytes # (A) 0.54 X 10*3/uL (0.20-1.00); Monocytes % (A) 8.6 %; NRBC Per 100 WBC 0 X 10*3/uL (0.00-0.01); Neutrophils # (A) 2.58 X 10*3/uL (1.80-7.70); Neutrophils % (A) 40.9 %; Platelet Count 387 X 10*3/uL (140-440); RBC 4.56 X 10*6/uL (4.10-5.20); WBC 6.29 X 10*3/uL (4.50-10.00)
[2023-01-05 16:22] LABS: ALT 33 U/L (8-44); Blood Urea Nitrogen 26.8 mg/dL (9.0-27.0); Calcium 9.9 mg/dL (8.7-10.3); Carbon Dioxide 25.6 mmol/L (21.6-31.8); Chloride 104 mmol/L (96-109); Chol/HDL Ratio 3.02 Ratio; Glucose 89 mg/dL (70-110); LDL Cholesterol,Calculated 145.4 mg/dL (0.0-131.0); Potassium 5.4 mmol/L (3.5-5.5); Sodium 140 mmol/L (135-145); VLDL Calculation 13.02 mg/dL (5.00-40.00)
[2023-01-05 16:23] LABS: AST 26 U/L (13-35)
== END | disposition home or self-care (01) ==
LOC: LABWHC1 08:15
PROVIDERS: ATTEND Family Medicine
DX: I10 Essential (primary) hypertension (principal); E78.5 Hyperlipidemia, unspecified; E66.3 Overweight
CPT/HCPCS: 36415; 80048; 80061; 81001; 82306; 83036; 84443; 84450; 84460; 85025

== ENCOUNTER → 2023-07-30 | Outpatient (CLI) | payer MEDICAID ==
[2023-07-30 19:17] LABS: HCT 46.8 % (37.2-46.3); HGB 14.5 g/dL (12.0-15.0); MCH 30.3 pg (27.0-32.0); MCV 97.7 FL (80.0-97.0); Mean Platelet Volume 10.2 FL (9.5-12.2); NRBC Per 100 WBC 0 X 10*3/uL (0.00-0.01); Platelet Count 377 X 10*3/uL (140-440); RBC 4.79 X 10*6/uL (4.10-5.20); RDW 12.7 % (11.5-14.5); WBC 7.04 X 10*3/uL (4.50-10.00)
[2023-07-30 19:56] LABS: BUN/Creat Ratio 31.56 Ratio (12.00-20.00); Blood Urea Nitrogen 28.4 mg/dL (9.0-27.0); Calcium 10.1 mg/dL (8.7-10.3); Carbon Dioxide 26.4 mmol/L (21.6-31.8); Chloride 98 mmol/L (96-109); Glucose 92 mg/dL (70-110); Potassium 5.2 mmol/L (3.5-5.5); Sodium 138 mmol/L (135-145)
[2023-07-30 19:57] LABS: ALT 29 U/L (8-44); AST 23 U/L (13-35)
== END | disposition home or self-care (01) ==
LOC: LABWHC1 12:51
PROVIDERS: ATTEND Family Medicine
DX: I10 Essential (primary) hypertension (principal); E66.3 Overweight
CPT/HCPCS: 36415; 80048; 82306; 83036; 84450; 84460; 85027

== ENCOUNTER 2023-09-11 14:50 | Observation (INO) | payer MEDICAID ==
--- NOTE | 2023-09-11 15:30 | CT ---
EXAMINATION TYPE: CODE STROKE: CT brain wo contr CT DLP: 1099.6 mGycm, Automated exposure control for dose reduction was used. DATE OF EXAM: 09/11/2023 3:25 PM COMPARISON: None. CLINICAL INDICATION:Female, 63 years old with history of Neuro deficit, acute, stroke suspected, slur red speech. code stroke TECHNIQUE: Brain: Axial CT images of the brain were obtained with coronal and sagittal reformats created and rev iewed. Contrast used: None. Oral contrast used: None. FINDINGS: Brain: Extra-axial spaces: No abnormal extra-axial fluid collections. Ventricular system: Within normal limits Cerebral parenchyma: No acute intraparenchymal hemorrhage or mass effect. The hinds-white junction is well differentiated. Cerebellum: Unremarkable. Mass effect: No evidence of midline shift. Intracranial vasculature: unremarkable Soft tissues: Normal. Calvarium/osseous structures: No depressed skull fracture. Paranasal sinuses and mastoid air cells: Mild scattered paranasal sinus disease. Visualized orbits: Orbital contents are intact. IMPRESSION: No acute intracranial process.
[2023-09-11 15:31] LABS: Glucose,Whole Blood 94 mg/dL (70-110)
--- NOTE | 2023-09-11 15:34 | ED ---
General Adult HPI - General Chief complaint: Neuro Symptoms/Deficit Stated complaint: neuro symp Time Seen by Provider: 09/11/23 15:01 Source: patient, RN notes reviewed, old records reviewed Mode of arrival: ambulatory Limitations: no limitations - History of Present Illness Initial comments: 63-year-old female presenting for evaluation of slurred speech, left-sided facial droop. Symptoms began at 1430. Patient's symptoms had initially resolved and then quickly returned. At the time my initial evaluation she has a left-sided facial droop, dysarthria expressive aphasia and left arm drift with mild ataxia. Initial NIH at the time my evaluation is 5. This does quickly resolved to 0. Headache. No anticoagulation. Patient is a thrombolytic a ctivation. - Related Data Home Medications Medication Instructions Recorded Confirmed ALPRAZolam [Xanax] 0.25 mg PO TID PRN 05/08/15 09/11/23 lisinopriL [Zestril] 10 mg PO DAILY 05/08/15 09/11/23 Phentermine HCl [Adipex-P] 37.5 mg PO DAILY 09/11/23 09/11/23 Allergies Allergy/AdvReac Type Severity Reaction Status Date / Time No Known Allergies Allergy Verified 09/11/23 15:09 Review of Systems ROS Statement: Those systems with pertinent positive or pertinent negative responses have been documented in the HPI. ROS Other: All systems not noted in ROS Statement are negative. Past Medical History Past Medical History: Hyperlipidemia, Hypertension Additional Past Medical History / Comment(s): rectal bleeding History of Any Multi-Drug Resistant Organisms: None Reported Past Surgical History: Section, Orthopedic Surgery, Tonsillectomy Additional Past Surgical History / Comment(s): nichole bunionectomy Past Anesthesia/Blood Transfusion Reactions: Motion Sickness Past Psychological History: Anxiety Smoking Status: Never smoker Past Alcohol Use History: Rare Past Drug Use History: None Reported - Past Family History Mother Family Medical History: No Reported History General Exam Limitations: no limitations General appearance: alert, in no apparent distress Head exam: Present: atraumatic, normocephalic Eye exam: Present: normal appearance, PERRL ENT exam: Present: normal exam Neck exam: Present: normal inspection. Absent: tenderness, meningismus Respiratory exam: Present: normal lung sounds bilaterally. Absent: respiratory distress, wheezes Cardiovascular Exam: Present: normal rhythm, tachycardia GI/Abdominal exam: Present: soft. Absent: distended, tenderness, guarding Extremities exam: Present: normal inspection, normal capillary refill Neurological exam: Present: alert, oriented X3, motor sensory deficit (Expressiv e aphasia, dysarthria, left-sided facial droop, left upper extremity weakness and ataxia, NIH of 5). Absent: CN II-XII intact Psychiatric exam: Present: normal affect, normal mood Skin exam: Present: warm, dry, intact. Absent: cyanosis, diaphoretic Course Vital Signs 09/11/23 09/11/23 09/11/23 14:51 15:02 15:51 Temperature 97.9 F 97.5 F L Pulse Rate 108 H 114 H 120 H Respiratory 18 16 16 Rate Blood Pressure 179/107 158/92 158/92 O2 Sat by Pulse 98 97 97 Oximetry 09/11/23 16:35 Temperature Pulse Rate 102 H Respiratory 16 Rate Blood Pressure 165/89 O2 Sat by Pulse 97 Oximetry - Reevaluation(s) Reevaluation #1: 09/11/23 15:32 Patient again reevaluated, speech has improved. Medical Decision Making - Medical Decision Making Was pt. sent in by a medical professional or institution (, PA, CHIEF TALENT OFFICER, urgent care, hospital, or half-way...) When possible be specific @ -No Did you speak to anyone other than the patient for history (EMS, parent, family, police, friend...)? What history was obtained from this source @ -No Did you review nursing and triage notes (agree or disagree)? Why? @ -I reviewed and agree with nursing and triage notes Were old charts reviewed (outside hosp., previous admission, EMS record, old EKG, old radiological studies, urgent care reports/EKG's, half-way records)? Report findings @ -No old charts were reviewed Differential CVA Ischemic stroke, hemorrhagic stroke, brain tumor, atypical migraine, Wernicke's encephalopathy, seizure, multiple sclerosis, meningitis, encephalitis, hypoglycemia, Guillain-Knight, electrolytes disturbance, myasthenia gravis.... This is not meant to be an all-inclusive list EKG interpreted by me (3pts min.). @EKG: Sinus tachycardia rate of 110, MO interval 124, QRS duration 103, QTc [address] segment elevation. X-rays interpreted by me (1pt min.). @ -[Chest x-ray is negative for acute cardiopulmonary finding CT interpreted by me (1pt min.). @ -None done U/S interpreted by me (1pt. min.). @ -[None CT brain without contrast and CT angiography are performed, negative for intracranial hemorrhage, negative for acute occlusiontesting was considered but not performed or refused? (CT, X-rays, U/S, labs)? Why? @ -None What meds were considered but not given or refused? Why? @ -None Did you discuss the management of the patient with other professionals (professionals i.e. , PA, CHIEF TALENT OFFICER, lab, RT, psych nurse, sr. social media & mobile manager, product safety technical assistant, teacher, hazard mitigation officer, manager of case)? Give summary @ -Case discussed with neurointerventional team out of of [place] [facility], case discussed with the admitting team, [facility] Was smoking cessation discussed for >3mins.? @ -No Was critical care preformed (if so, how long)? @ -Yes, 35 minutes Were there social determinants of health that impacted care today? How? (Homelessness, low income, unemployed, alcoholism, drug addiction, transp ortation, low edu. Level, literacy, decrease access to med. care, snf, rehab)? @ -No Was there de-escalation of care discussed even if they declined (Discuss DNR or withdrawal of care, Hospice)? DNR status @ -No What co-morbidities impacted this encounter? (DM, HTN, Smoking, COPD, CAD, Cancer, CVA, ARF, Chemo, Hep., AIDS, mental health diagnosis, sleep apnea, morbid obesity)? @ -[Hypertension Was patient admitted / discharged? Hospital course, mention meds given and route, prescriptions, significant lab abnormalities, going to OR and other pertinent info. @ -63-year-old female presenting with suspected stroke. Symptoms are initially waxing and waning they are present and resolved, present then resolved. Max NIH of 5, ultimately the patient has complete resolution. Not a thrombolytic candidate secondary to resolved symptoms and an NIH of 0. She is taken for CT CT angiography which are negative. Laboratory testing is unremarkable. Patient remains mildly hypertensive and permissive hypertension will be allowed. She started on aspirin. She will be admitted to internal medicine with neurology on consult. Undiagnosed new problem with uncertain prognosis? @ -No Drug Therapy requiring intensive monitoring for toxicity (Heparin, Nitro, Insulin, Cardizem)? @ -No Were any procedures done? @ -No Diagnosis/symptom? @TIA Acute, or Chronic, or Acute on Chronic? @Acute Uncomplicated (without systemic symptoms) or Complicated (systemic symptoms)? @ -Default Side effects of treatment? @ -No Exacerbation, Progression, or Severe Exacerbation? @ -No Poses a threat to life or bodily function? How? (Chest pain, [place], [place], pneumonia, PE, COPD, DKA, ARF, appy, cholecystitis, CVA, Diverticulitis, Homicidal, Suicidal, threat to staff... and all critical care pts) @Yes, CVA - Lab Data Result diagrams: 09/11/23 15:14 Lab Results 09/11/23 09/11/23 09/11/23 Range/Units 15:14 15:14 15:28 WBC 9.3 (3.8-10.6) k/uL RBC 4.37 (3.80-5.40) m/uL Hgb 14.0 (11.4-16.0) gm/dL Hct 41.9 (34.0-46.0) % MCV 95.9 (80.0-100.0) fL MCH 32.0 (25.0-35.0) pg MCHC 33.3 (31.0-37.0) g/dL RDW 12.6 (11.5-15.5) % Plt Count 327 (150-450) k/uL MPV 7.7 Neutrophils % 49 % Lymphocytes % 40 % Monocytes % 6 % Eosinophils % 3 % Basophils % 1 % Neutrophils # 4.5 (1.3-7.7) k/uL Lymphocytes # 3.7 (1.0-4.8) k/uL Monocytes # 0.5 (0-1.0) k/uL Eosinophils # 0.2 (0-0.7) k/uL Basophils # 0.1 (0-0.2) k/uL PT 10.0 (10.0-12.5) sec INR 0.9 (<1.2) APTT 23.3 (22.0-30.0) sec POC Glucose (mg/dL) 94 (70-110) mg/dL POC Glu Assistant Sales Center Manager Ayan Lara Critical Care Time Critical Care Time: Yes Total Critical Care Time: 35 Disposition Clinical Impression: Transient cerebral ischemia Disposition: ADMITTED IP TO THIS HOSP Condition: Stable Is patient prescribed a controlled substance at d/c from ED?: No Referrals: Vinay Hill DO [Primary Care Provider] - 1-2 days Time of Disposition: 16:50
[2023-09-11] MEDS: SODIUM CHLORIDE 0.9% 1,000 ML IV STA (15:41)
[2023-09-11 15:47] LABS: INR 0.9 (<1.2); Partial Thromboplastin Time 23.3 sec (22.0-30.0)
--- NOTE | 2023-09-11 15:47 | CT ---
EXAMINATION TYPE: CT angio head neck CT DLP: 488.9 mGycm, Automated exposure control for dose reduction was used. DATE OF EXAM: 09/11/2023 3:38 PM COMPARISON: 09/11/2023. CLINICAL INDICATION:Female, 63 years old with history of Neuro deficit, acute, stroke suspected; PHH, slurred speech. code stroke TECHNIQUE: Axially acquired helical CT angiogram of the head and neck was obtained with contrast. Axi al images are supplemented with 3D reconstructions and MIP images which were post-processed at an in dependent workstation. NASCET criteria used. Contrast used:65ml mL of Isovue 370 with IV Contrast, Oral contrast used: None. FINDINGS: CTA HEAD: No evidence of acute intracranial hemorrhage, mass effect, or midline shift. The ventricles, sulci, a nd cisterns are unremarkable. The visualized portions of the internal carotid arteries, middle cerebral arteries, anterior cerebral arteries, and posterior cerebral arteries are patent. The basilar and vertebral arteries are patent. CTA NECK: Right Carotid System: The common carotid artery and external carotid artery are patent. The carotid bifurcation demonstrate s no evidence of hemodynamically significant stenosis. The remaining portions of the internal carotid artery demonstrate normal size without significant narrowing. Left Carotid System: The common carotid artery and external carotid artery are patent. The carotid bifurcation demonstrate s no evidence of hemodynamically significant stenosis. The remaining portions of the internal carotid artery demonstrate normal size without significant narrowing. Vertebral arteries are patent without evidence hemodynamically significant stenosis. There is a three-vessel aortic arch. The origins of the great vessels are patent. No evidence of hemo dynamically significant stenosis. Upper thorax: Centrilobular emphysema changes seen throughout the lungs. IMPRESSION: 1. No evidence of dissection of the cervical internal carotid arteries or vertebral arteries or any e vidence of significant stenosis at the carotid bifurcations. 2. No evidence of intracranial high-grade stenosis or intracranial aneurysm.
[2023-09-11] MEDS: ASPIRIN 325 MG TAB PO STA (16:06)
[2023-09-11 16:08] LABS: Basophils # (A) 0.1 k/uL (0-0.2); Basophils % (A) 1 %; Eosinophils # (A) 0.2 k/uL (0-0.7); Eosinophils % (A) 3 %; HCT 41.9 % (34.0-46.0); Lymphocytes # (A) 3.7 k/uL (1.0-4.8); Lymphocytes % (A) 40 %; MCHC 33.3 g/dL (31.0-37.0); MCV 95.9 fL (80.0-100.0); Mean Platelet Volume 7.7; Monocytes # (A) 0.5 k/uL (0-1.0); Monocytes % (A) 6 %; Neutrophils # (A) 4.5 k/uL (1.3-7.7); Neutrophils % (A) 49 %; Platelet Count 327 k/uL (150-450); RBC 4.37 m/uL (3.80-5.40); RDW 12.6 % (11.5-15.5); WBC 9.3 k/uL (3.8-10.6)
--- NOTE | 2023-09-11 16:17 | XR ---
EXAMINATION TYPE: XR chest 2V DATE OF EXAM: 09/11/2023 4:03 PM CLINICAL INDICATION:Female, 63 years old with history of altered mental status; [facility] COMPARISON: Chest radiographs from 05/08/2015 TECHNIQUE: XR chest 2V Frontal view of the chest. FINDINGS: Lungs/Pleura: There is no evidence of pleural effusion, focal consolidation, or pneumothorax. Pulmonary vascularity: Unremarkable. Heart/mediastinum: Cardiomediastinal silhouette is unremarkable. Musculoskeletal: No acute osseous pathology. Other findings: None IMPRESSION: No acute cardiopulmonary disease/process.
[2023-09-11] MEDS: SODIUM CHLORIDE 0.9% 1,000 ML IV SCH (16:35)
[2023-09-11 17:08] LABS: ALT 19 U/L (4-34); African American GFR (CKD) 87 (>60 ml/min/1.73 sqM); Anion Gap 7 mmol/L; Blood Urea Nitrogen 21 mg/dL (7-17); Calcium 8.9 mg/dL (8.4-10.2); Carbon Dioxide 22 mmol/L (22-30); Chloride 109 mmol/L (98-107); Creatine Kinase 53 U/L (30-135); Glucose 81 mg/dL (74-99); Non-African American GFR(CKD) 75 (>60 ml/min/1.73 sqM); Sodium 138 mmol/L (137-145); Total Bilirubin 0.8 mg/dL (0.2-1.3)
[2023-09-11 17:13] LABS: AST 35 U/L (14-36); Alkaline Phosphatase 80 U/L (38-126); Potassium 4.9 mmol/L (3.5-5.1); Total Protein 6.5 g/dL (6.3-8.2)
[2023-09-11] MEDS: CLOPIDOGREL 75 MG TAB PO STA (18:42)
[2023-09-11] MEDS: ATORVASTATIN 80 MG TAB PO SCH (20:11)
--- NOTE | 2023-09-12 07:39 | P.CNNES ---
History of Present Illness Consult date: 09/11/23 Requesting physician: Desmond Ray Reason for Consult: TIA History of Present Illness: Patient is a 63-year-old right-handed female with history of hypertension, hyperlipidemia, X tobacco use, came to the hospital today at 2:50 PM for recurrent TIA. Patient states that she was at work, talking to a coworker at around 2:30 PM, when she suddenly couldn't talk. She felt that she was talking in a slow motion although coworkers felt that she was slurring her speech, could hardly get words out. This episode lasted for a minute and thereafter she felt that she was speaking normally although the coworkers still felt some slurring of speech. Her left corner of the mouth was slightly droopy. She denied any vi sual symptoms at that time, any focal numbness, tingling, weakness, incoordination or gait difficulty. She works at [employer]. Therefore she was brought to the hospital. Patient's symptoms had resolved when she arrived to the ER, but then recurred for 2-3 additional time, each time lasting for about a "1 minute" each time. With one episode, she also noticed some "squiggly lines in her vision". This also lasted for only a few minutes. There was no numbness or tingling or any other focal symptoms. Patient feels that she is back to baseline now. On vital signs on arrival blood pressure 179/107, pulse rate 108, temperature 97.9. Blood test shows normal CBC, PT/PTT, normal CMP. Troponin negative, CK normal. CT head revealed no acute intracranial process. I personally reviewed CT head, agree with the findings. EKG showed sinus tachycardia. Possible left atrial enlargement. Chest x-ray showed no acute cardiac or process. CTA of head and neck revealed no evidence of dissection of the cervical internal carotid arteries or vertebral arteries or any evidence of significant stenosis at the carotid bifurcations. No evidence of intracranial high-grade stenosis or intracranial aneurysm. Stroke code was activated in the ER. Initial NIH stroke scale was 5 pertaining to left-sided facial droop, dysarthria, expressive aphasia, left arm drift with mild ataxia. This quickly resolved to 0. ED staff discuss case with neuro intervention, and patient was considered not a candidate for TPA because of symptoms have resolved. Patient and her present at that time believes that her symptoms have resolved. Patient has history of hypertension, hyperlipidemia, denies diabetes. She has smoked 1 pack per day for 35 years, quit 20 years ago. Denies any alcohol use. Patient does have osteoarthritis, cervical disc disease. She wakes up with headache every morning for the last 10 years, and takes Excedrin 2 tablets every morning. She takes it every day, consistently therefore is taking aspirin. Otherwise he takes lisinopril 10 mg, Xanax and Adipex. Review of Systems Constitutional: Denies chills, Denies fever Eyes: bilateral as per HPI, denies diplopia, denies loss of peripheral vision Ears: bilateral: decreased hearing, deny: ear discharge Ears, nose, mouth and throat: Reports headache, Denies vertigo Cardiovascular: Denies chest pain, Denies lightheadedness, Denies shortness of breath Respiratory: Denies cough, Denies excessive sputum Gastrointestinal: Denies abdominal pain, Denies diarrhea, Denies nausea, Denies vomiting Genitourinary: Denies dysuria, Denies hematuria Musculoskeletal: Reports neck pain, Denies low back pain Integumentary: Denies pruritus, Denies rash Neurological: Reports as per HPI Psychiatric: Denies anxiety, Denies depression Hematologic/Lymphatic: Denies easy bleeding, Denies easy bruising Past Medical History Past Medical History: Hyperlipidemia, Hypertension Additional Past Medical History / Comment(s): rectal bleeding History of Any Multi-Drug Resistant Organisms: None Reported Past Surgical History: Section, Orthopedic Surgery, Tonsillectomy Additional Past Surgical History / Comment(s): nichole bunionectomy Past Anesthesia/Blood Transfusion Reactions: Motion Sickness Past Psychological History: Anxiety Smoking Status: Never smoker Past Alcohol Use History: Rare Past Drug Use History: None Reported - Past Family History Mother Family Medical History: No Reported History Medications and Allergies Home Medications Medication Instructions Recorded Confirmed Type ALPRAZolam [Xanax] 0.25 mg PO TID PRN 05/08/15 09/11/23 History lisinopriL [Zestril] 10 mg PO DAILY 05/08/15 09/11/23 History Phentermine HCl [Adipex-P] 37.5 mg PO DAILY 09/11/23 09/11/23 History Allergies Allergy/AdvReac Type Severity Reaction Status Date / Time No Known Allergies Allergy Verified 09/11/23 15:09 Physical Examination - Vital Signs Vital Signs: Vital Signs Temp Pulse Resp BP Pulse Ox 09/11/23 16:35 102 H 16 165/89 97 09/11/23 15:51 97.5 F L 120 H 16 158/92 97 09/11/23 15:02 114 H 16 158/92 97 09/11/23 14:51 97.9 F 108 H 18 179/107 98 Intake and Output 09/11/23 09/11/23 09/11/23 06:59 14:59 22:59 Other: Weight 78.29 kg Patient is an elderly female, very pleasant, in no acute distress. Patient is alert awake oriented to time place and person. Speech and language functions are normal. Patient can name and repeat very well. No aphasia, although there may be very mild dysarthria although patient and her denies any speech difficulty at this time. Attention, concentration and fund of knowledge is adequate. On cranial nerve examination, pupils are equal, round and reacting to light, visual taylor are full on confrontation, with no neglect on double simultaneous stimulation. Extraocular muscles are intact with no nystagmus. Face is symmetric, tongue protrudes to the midline. Palatal elevation and sensation normal, hearing is slightly decreased and shoulder shrug normal, facial sensation normal. On muscle strength testing, there is no pronator drift and the strength is normal in arms and legs distally and proximally. Deep tendon reflexes are symmetric very symmetric, 2+ all over and plantars downgoing. Sensory to touch is equal with no neglect on double simultaneous stimulation. Cerebellar function showed no ataxia for [id number] testing. No dysdiadochokinesia. No ataxia for [id number] testing on either side. Tone and bulk of muscles normal. Gait deferred.. On general examination, there is no carotid bruit or murmur, S1-S2 audible. Chest is clear on consultation. Abdomen is soft nontender. No organomegaly, bowel sounds present. Peripheral pulses are present. No peripheral edema. Results - Laboratory Findings CBC and BMP: 09/11/23 15:14 09/11/23 16:25 Abnormal Lab Findings: Abnormal Labs 09/11/23 16:25 Chloride 109 H BUN 21 H Assessment and Plan Assessment: * Recurrent TIA manifesting with slurred speech and left facial droop. Symptoms have completely resolved, with NIH stroke scale of 0. Patient was not a candidate for thrombolysis because of symptoms resolved. * Hypertension * Hyperlipidemia * Osteoarthritis * X tobacco use Plan: * MRI of the brain without contrast, evaluate for acute CVA * 2-D echo with bubble study to rule out PFO * CTA head and neck showed: No evidence of dissection of the cervical internal carotid arteries, or vertebral arteries or any evidence of significant stenosis at the carotid bifurcation. No evidence of intracranial high-grade stenosis or intracranial aneurysm. * Fasting a.m. lipid panel. Patient's previous lipid panel from 01/05/2023 showed cholesterol 237, with LDL of 145. Agree with starting Lipitor 80 mg daily. * Hemoglobin A1c 5.8 on 07/30/2023. No need to repeat. * Permissive hypertension for next 24-48 hours * Patient has been taking aspirin in the form of Excedrin 2 tablets every day. Therefore she probably has failed aspirin regimen. We will start her on Plavix. Because of recurrent multiple episodes of TIA, we will give loading dose of Plavix 300 mg 1 dose and then 75 mg daily. * Neuro checks every 1 hour. * Telemetry monitoring rule out any arrhythmia * PT, OT, speech therapy * DVT prophylaxis: Heparin 5000 units subcu every 8 hours * Neurology will continue to follow. Thank you for the consult. Time with Patient: Greater than 30
[2023-09-12] MEDS: ASPIRIN 325 MG TAB PO SCH (08:29)
[2023-09-12] MEDS: CLOPIDOGREL 75 MG TAB PO SCH (08:29)
[2023-09-12 11:34] LABS: Chol/HDL Ratio 2.96 Ratio; VLDL Calculation 16.36 mg/dL (5.00-40.00)
--- NOTE | 2023-09-12 11:56 | P.HPIM ---
History of Present Illness Patient had been 63-year-old female came in with complaints of slurred speech at work lasted for 1 minute. Patient does not have any other focal weakness tingling numbness. Slurred speech completely resolved when I evaluate patient p atient does not have any focal deficits. Patient has not had any fever chills, nausea vomiting. Patient is feeling well at this time CT angio of the head and neck did not show any significant abnormality. CT of the head did not show any stroke. MRA is pending echocardiogram is pending patient has a elevated LDL level 120. Patient had sinus tachycardia on admission which resolved patient takes Adipex at home. REVIEW OF SYSTEMS: All other systems are negative except those mentioned in the HPI PHYSICAL EXAMINATION: GENERAL: The patient is alert and oriented x3, not in any acute distress. Well developed, well nourished. HEENT: Pupils are round and equally reacting to light. EOMI. No scleral icterus. No conjunctival pallor. Normocephalic, atraumatic. No pharyngeal erythema. No thyromegaly. CARDIOVASCULAR: S1 and S2 present. No murmurs, rubs, or gallops. PULMONARY: Chest is clear to auscultation, no wheezing or crackles. ABDOMEN: Soft, nontender, nondistended, normoactive bowel sounds. No palpable organomegaly. MUSCULOSKELETAL: No joint swelling or deformity. EXTREMITIES: No cyanosis, clubbing, or pedal edema. NEUROLOGICAL: Gross neurological examination did not reveal any focal deficits. SKIN: No rashes. Assessment and plan -TIA: Patient does not have any residual weakness or numbness at this time patient will be started on statin dual antiplatelet therapy as patient is already taking Excedrin at home discussed with neurology if MRI is negative and if her echocardiogram does not show any significant abnormality patient will be discharged today on aspirin statin and Plavix. -Sinus tachycardia resolved at this time probably secondary to Adipex -Hyperlipidemia DVT prophylaxis: Early ambulation possibility of discharge later today. Past Medical History Past Medical History: Hyperlipidemia, Hypertension Additional Past Medical History / Comment(s): rectal bleeding History of Any Multi-Drug Resistant Organisms: None Reported Past Surgical History: Section, Orthopedic Surgery, Tonsillectomy Additional Past Surgical History / Comment(s): nichole bunionectomy Past Anesthesia/Blood Transfusion Reactions: Motion Sickness Past Psychological History: Anxiety Smoking Status: Never smoker Past Alcohol Use History: Rare Past Drug Use History: None Reported - Past Family History Mother Family Medical History: No Reported History Medications and Allergies Home Medications Medication Instructions Recorded Confirmed Type ALPRAZolam [Xanax] 0.25 mg PO TID PRN 05/08/15 09/11/23 History lisinopriL [Zestril] 10 mg PO DAILY 05/08/15 09/11/23 History Phentermine HCl [Adipex-P] 37.5 mg PO DAILY 09/11/23 09/11/23 History Allergies Allergy/AdvReac Type Severity Reaction Status Date / Time No Known Allergies Allergy Verified 09/11/23 15:09 Physical Exam Vitals: Vital Signs Temp Pulse Pulse Resp BP BP Pulse Ox 09/12/23 11:43 79 18 134/76 97 09/12/23 08:28 97.6 F 83 16 117/71 95 09/12/23 04:00 98.2 F 73 16 120/77 95 09/12/23 02:00 83 16 09/12/23 00:00 97.6 F 83 16 130/78 95 09/11/23 20:00 98.1 F 93 16 153/75 98 09/11/23 19:28 99 18 162/95 96 09/11/23 16:35 102 H 16 165/89 97 09/11/23 15:51 97.5 F L 120 H 16 158/92 97 09/11/23 15:02 114 H 16 158/92 97 09/11/23 14:51 97.9 F 108 H 18 179/107 98 Intake and Output 09/11/23 09/12/23 09/12/23 22:59 06:59 14:59 Intake Total 120 Balance 120 Intake: Oral 120 Other: Voiding Method Toilet Toilet Toilet # Voids 2 1 0 Weight 78.29 kg 76.9 kg Results CBC & Chem 7: 09/11/23 15:14 09/11/23 16:25 Labs: Abnormal Lab Results - Last 24 Hours (Table) 09/11/23 09/12/23 Range/Units 16:25 07:47 Chloride 109 H (98-107) mmol/L BUN 21 H (7-17) mg/dL Cholesterol 206.00 H (0.00-200.00) mg/dL HDL Cholesterol 69.60 H (40.00-60.00) mg/dL Thrombosis Risk Factor Assmnt - Choose All That Apply Any of the Below Risk Factors Present?: Yes Each Factor Represents 1 point: Obesity (BMI >25) Other Risk Factors: Yes Each Risk Factor Represents 2 Points: Age 61-74 years Other congenital or acquired thrombophilia - If yes, enter type in comment: No Thrombosis Risk Factor Assessment Total Risk Factor Score: 3 Thrombosis Risk Factor Assessment Level: Moderate Risk
--- NOTE | 2023-09-12 11:57 | P.DS ---
Providers Date of admission: 09/11/23 17:06 Attending physician: John Aponte Consults: 09/11/23 16:45 Consult Physician Urgent Consulting Provider: Omer Skelton Consult Reason/Comments: TIA Do you want consulting provider notified?: Yes Primary care physician: [facility] Course: Patient had been 63-year-old female came in with complaints of slurred speech at work lasted for 1 minute. Patient does not have any other focal weakness tingling numbness. Slurred speech completely resolved when I evaluate patient patient does not have any focal deficits. Patient has not had any fever chills, nausea vomiting. Patient is feeling well at this time CT angio of the head and neck did not show any significant abnormality. CT of the head did not show any stroke. MRA is pending echocardiogram is pending patient has a elevated LDL level 120. Patient had sinus tachycardia on admission which resolved patient takes Adipex at home. PHYSICAL EXAMINATION: GENERAL: The patient is alert and oriented x3, not in any acute distress. Well developed, well nourished. HEENT: Pupils are round and equally reacting to light. EOMI. No scleral icterus. No conjunctival pallor. Normocephalic, atraumatic. No pharyngeal erythema. No thyromegaly. CARDIOVASCULAR: S1 and S2 present. No murmurs, rubs, or gallops. PULMONARY: Chest is clear to auscultation, no wheezing or crackles. ABDOMEN: Soft, nontender, nondistended, normoactive bowel sounds. No palpable organomegaly. MUSCULOSKELETAL: No joint swelling or deformity. EXTREMITIES: No cyanosis, clubbing, or pedal edema. NEUROLOGICAL: Gross neurological examination did not reveal any focal deficits. SKIN: No rashes. Assessment and plan -TIA: Patient does not have any residual weakness or numbness at this time patient will be started on statin dual antiplatelet therapy as patient is already taking Excedrin at home discussed with neurology if MRI is negative and if her echocardiogram does not show any significant abnormality patient will be discharged today on aspirin statin and Plavix. -Sinus tachycardia resolved at this time probably secondary to Adipex -Hyperlipidemia Patient Condition at Discharge: Stable Plan - Discharge Summary Discharge Rx Participant: Yes New Discharge Prescriptions: No Action lisinopriL [Zestril] 10 mg PO DAILY ALPRAZolam [Xanax] 0.25 mg PO TID PRN PRN Reason: Anxiety Phentermine HCl [Adipex-P] 37.5 mg PO DAILY Discharge Medication List ALPRAZolam [Xanax] 0.25 mg PO TID PRN 05/08/15 [History] lisinopriL [Zestril] 10 mg PO DAILY 05/08/15 [History] Phentermine HCl [Adipex-P] 37.5 mg PO DAILY 09/11/23 [History] Follow up Appointment(s)/Referral(s): Vinay Hill DO [Primary Care Provider] - 1-2 days
--- NOTE | 2023-09-12 13:16 | MR ---
EXAMINATION TYPE: MR brain wo con DATE OF EXAM: 09/12/2023 1:04 PM COMPARISON: NONE HISTORY: Neuro deficit, evaluate for stroke. FINDINGS: The ventricles, basal cisterns and sulci overlying the cerebral convexities are mildly enlarged. There is evidence of mild periventricular white matter ischemic demyelination. Remote deep white matter insults are also noted. On diffusion weighted imaging there are 2 subtle areas of increased radiotracer accumulation on the r ight right parietal region for which I suspect acute vascular insult. No evidence for midline shift o r hemorrhagic transformation. There is no evidence for midline shift or mass effect. Acute intracranial hemorrhage or extra-axial collection is not evident. The paranasal sinuses and mastoid air cells are well-aerated. IMPRESSION: On diffusion weighted imaging there are 2 subtle areas of increased radiotracer accumulation on the r ight right parietal region for which I suspect acute vascular insult. No evidence for midline shift o r hemorrhagic transformation.
[2023-09-13 08:24] VITALS: TEMP 97.8
--- NOTE | 2023-09-13 08:24 | P.PN ---
Subjective Progress Note Date: 09/12/23 Patient was seen for a follow-up. Patient is sitting comfortably in the bed. Offers no new complaints. All symptoms have resolved. Objective - Vital Signs Vital signs: Vital Signs Temp 97.6 F 09/12/23 08:28 Pulse 84 09/12/23 12:28 Resp 17 09/12/23 12:28 BP 133/75 09/12/23 12:28 Pulse Ox 98 09/12/23 12:28 FiO2 Intake & Output 09/11/23 09/12/23 09/12/23 18:59 06:59 18:59 Intake Total 120 Balance 120 Weight 78.29 kg 76.9 kg Intake: Oral 120 Other: Voiding Method Toilet Toilet # Voids 1 0 - Exam Mental status, speech and level functions are normal. Visual taylor are full. Face is symmetric. On muscle strength testing there is no pronator drift and the strength is normal. No ataxia. Sensations normal. - Labs CBC & Chem 7: 09/11/23 15:14 09/11/23 16:25 Labs: Abnormal Lab Results - Last 24 Hours (Table) 09/11/23 09/12/23 Range/Units 16:25 07:47 Chloride 109 H (98-107) mmol/L BUN 21 H (7-17) mg/dL Cholesterol 206.00 H (0.00-200.00) mg/dL HDL Cholesterol 69.60 H (40.00-60.00) mg/dL Assessment and Plan Assessment: * Recurrent TIA manifesting with slurred speech and left facial droop. Symptoms have completely resolved, with NIH stroke scale of 0. Patient was not a candidate for thrombolysis because of symptoms resolved. MRI confirmed two subtle areas of abnormal signal in the right parietal region, consistent with ischemic infarction. * Hypertension * Hyperlipidemia * Osteoarthritis * X tobacco use Plan: * MRI of the brain without contrast, revealed 2 subtle areas of increased signal on the right parietal region, consistent with acute vascular insult. I personally reviewed MRI, agree with the findings. * Await 2-D echo with bubble study to rule out PFO * CTA head and neck showed: No evidence of dissection of the cervical internal carotid arteries, or vertebral arteries or any evidence of significant st enosis at the carotid bifurcation. No evidence of intracranial high-grade stenosis or intracranial aneurysm. * Recommended 30 day event monitoring, rule out paroxysmal atrial fibrillation. * Fasting a.m. lipid panel. Patient's previous lipid panel from 01/05/2023 showed cholesterol 237, with LDL of 145. Agree with starting Lipitor 80 mg daily. * Hemoglobin A1c 5.8 on 07/30/2023. No need to repeat. * Optimize control of blood pressure to normotensive level. * Patient has been taking aspirin in the form of Excedrin 2 tablets every day. Therefore she probably has failed aspirin regimen. We will start her on Plavix. Because of recurrent multiple episodes of TIA, we will give loading dose of Plavix 300 mg 1 dose and then 75 mg daily. * Neuro checks every 4 hour. * Telemetry monitoring rule out any arrhythmia * PT, OT, speech therapy * DVT prophylaxis: Heparin 5000 units subcu every 8 hours * Await 2-D echo before discharge.
[2023-09-13 11:58] VITALS: BP 129/81; PULSE 82; RESP 18
[2023-09-13] MEDS: ENOXAPARIN 40 MG/0.4 ML SYRINGE SQ SCH (12:30)
--- NOTE | 2023-09-13 14:35 | CA ---
Transthoracic Echo Report Name: Aletha Hernandez Age: 63 Gender: F : 1960 Exam Date: 09/12/2023 16:10 Exam Location: [place] [facility] Ht (in): 63 Wt (lb): 170 Ordering Physician: Desmond Ray MD Attending/Referring Phys: [id number], Flor Biology Manager Melanie Rasmussen RDCS Procedure CPT: Indications: Thrombus Cardiac Hx: Technical Quality: Fair Contrast 1: Total Dose (mL): Contrast 2: Total Dose (mL): MEASUREMENTS (Male / Female) Normal Values 2D ECHO LV Diastolic Diameter PLAX 4.6 cm 4.2 - 5.9 / 3.9 - 5.3 cm LV Systolic Diameter PLAX 3.0 cm IVS Diastolic Thickness 0.8 cm 0.6 - 1.0 / 0.6 - 0.9 cm LVPW Diastolic Thickness 0.9 cm 0.6 - 1.0 / 0.6 - 0.9 cm LV Relative Wall Thickness 0.4 LVOT Diameter 2.1 cm LV Diastolic Volume MOD BP 97.1 cm??? 67 - 155 / 56 - 104 cm??? LV Systolic Volume MOD BP 35.9 cm??? 22 - 58 / 19 - 49 cm??? LV Ejection Fraction MOD BP 63.0 % >= 55 % LV Cardiac Index MOD BP 2737.1 cm???/min???m??? LV Diastolic Volume MOD 4C 97.9 cm??? LV Systolic Volume MOD 4C 37.0 cm??? LV Ejection Fraction MOD 4C 62.2 % LV Cardiac Index MOD 4C 2723.4 cm???/min???m??? LV Diastolic Length 4C 7.5 cm LV Systolic Length 4C 6.3 cm LV Diastolic Volume MOD 2C 91.9 cm??? LV Systolic Volume MOD 2C 32.8 cm??? LV Ejection Fraction MOD 2C 64.3 % LV Cardiac Index MOD 2C 2646.4 cm???/min???m??? LV Diastolic Length 2C 7.2 cm LV Systolic Length 2C 5.9 cm LA Volume 38.8 cm??? 18 - 58 / 22 - 52 cm??? LA Volume Index 20.7 cm???/m??? 16 - 28 cm???/m??? Ascending Aorta Diameter 3.4 cm DOPPLER AV Peak Velocity 144.2 cm/s AV Peak Gradient 8.3 mmHg AV Mean Velocity 95.7 cm/s AV Mean Gradient 4.1 mmHg AV Velocity Time Integral 26.3 cm LVOT Peak Velocity 107.9 cm/s LVOT Peak Gradient 4.7 mmHg LVOT Velocity Time Integral 21.9 cm LVOT Stroke Volume 74.0 cm??? LVOT Stroke Volume Index 41.0 ml/m??? LVOT Cardiac Index 3310.4 cm???/min???m??? AV Area Cont Eq vti 2.8 cm??? AV Area Cont Eq pk 2.5 cm??? MV Area PHT 4.7 cm??? Mitral E Point Velocity 58.6 cm/s Mitral A Point Velocity 101.6 cm/s Mitral E to A Ratio 0.6 MV Deceleration Time 161.2 ms TR Peak Velocity 270.2 cm/s TR Peak Gradient 29.2 mmHg Right Atrial Pressure 5.0 mmHg Pulmonary Artery Systolic Pressu 34.2 mmHg Right Ventricular Systolic Press 34.2 mmHg PV Peak Velocity 94.7 cm/s PV Peak Gradient 3.6 mmHg FINDINGS Left Ventricle Left ventricular ejection fraction is estimated at 60 %. Left ventricular cavity size normal. Left ventricular wall thickness normal. No obvious regional wall motion abnormalities. Right Ventricle Normal right ventricular size and function. Right ventricular systolic pressure within normal limits. Right Atrium Normal right atrial size. Left Atrium Normal left atrial size. Mitral Valve Structurally normal mitral valve. No mitral stenosis, regurgitation or prolapse. Aortic Valve Trileaflet aortic valve. No aortic valve stenosis or regurgitation. Tricuspid Valve Structurally normal tricuspid valve. No tricuspid stenosis. Mild tricuspid regurgitation. Pulmonic Valve Structurally normal pulmonic valve. No pulmonic stenosis. No pulmonic regurgitation. Pericardium No pericardial effusion. Aorta Normal size aortic root and proximal ascending aorta. CONCLUSIONS Normal LV function Previewed by: Dr. Stephen Stanford MD (Electronically Signed) Final Date: 12 September 2023 17:38
--- NOTE | 2023-09-15 11:14 | P.PN ---
Subjective Progress Note Date: 09/13/23 Patient was seen for a follow-up. Patient is sitting comfortably in the bed. Offers no new complaints. All symptoms have resolved. Objective - Vital Signs Vital signs: Vital Signs Temp 97.8 F 09/13/23 08:23 Pulse 82 09/13/23 11:56 Resp 18 09/13/23 11:56 BP 129/81 09/13/23 11:56 Pulse Ox 96 09/13/23 11:56 FiO2 Intake & Output 09/12/23 09/13/23 09/13/23 18:59 06:59 18:59 Intake Total 1858 20 778 Balance 1858 20 778 Weight 76.2 kg Intake: IV 20 Invasive Line 1 20 Oral 1858 778 Other: Voiding Method Toilet Toilet Toilet # Voids 2 2 1 # Bowel Movements 0 - Exam Mental status, speech and level functions are normal. Visual taylor are full. Face is symmetric. On muscle strength testing there is mild left pronation, but no drift and the strength is normal. No ataxia. Sensations normal. - Labs CBC & Chem 7: 09/11/23 15:14 09/11/23 16:25 Assessment and Plan Assessment: * Recurrent TIA manifesting with slurred speech and left facial droop. Symptoms have completely resolved, with NIH stroke scale of 0. Patient was not a candidate for thrombolysis because of symptoms resolved. MRI confirmed two subtle areas of abnormal signal in the right parietal region, consistent with ischemic infarction. * Hypertension * Hyperlipidemia * Osteoarthritis * X tobacco use Plan: * MRI of the brain without contrast, revealed 2 subtle areas of increased signal on the right parietal region, consistent with acute vascular insult. I personally reviewed MRI, agree with the findings. * 2-D echo revealed normal left ventricular size and systolic function with EF 60%. No obvious regional wall motion abnormalities. Normal left atrial size. * CTA head and neck showed: No evidence of dissection of the cervical internal carotid arteries, or vertebral arteries or any evidence of significant stenosis at the carotid bifurcation. No evidence of intracranial high-grade stenosis or intracranial aneurysm. * Recommended 30 day event monitoring, rule out paroxysmal atrial fibrillation. * Fasting a.m. lipid panel. Patient's previous lipid panel from 01/05/2023 showed cholesterol 237, with LDL of 145. Agree with starting Lipitor 80 mg daily. * Hemoglobin A1c 5.8 on 07/30/2023. No need to repeat. * Optimize control of blood pressure to normotensive level. * Patient has been taking aspirin in the form of Excedrin 2 tablets every day. Therefore she probably has failed aspirin regimen. We will start her on Plavix. Because of recurrent multiple episodes of TIA, we will give loading dose of Plavix 300 mg 1 dose and then 75 mg daily. Continue Plavix 75 mg daily. Patient takes Excedrin frequently which has aspirin. * Telemetry monitoring rule out any arrhythmia * Neurologically clear for discharge. Discussed with primary physician Dr Hardwick.
== END 2023-09-13 15:13 | disposition home or self-care (01) ==
LOC: EC 14:50 → 3SCARD 17:06
PROVIDERS: ADMIT Hospitalist; ATTEND Hospitalist
DX: G45.9 Transient cerebral ischemic attack, unspecified (principal); R00.0 Tachycardia, unspecified; E78.5 Hyperlipidemia, unspecified; I10 Essential (primary) hypertension; M19.90 Unspecified osteoarthritis, unspecified site; F41.9 Anxiety disorder, unspecified; M50.90 Cervical disc disorder, unspecified, unspecified cervical region; Z87.891 Personal history of nicotine dependence; Z79.899 Other long term (current) drug therapy; Z79.82 Long term (current) use of aspirin
CPT/HCPCS: 96360; 96361; 99291; 36415; 93005; 93306; 93270; 97161; 92522; 80061; 80053; 82550; 84484; 85025; 85610; 85730; 71046; 70496; 70450; 70498; 70551; G0378 ×3; Q9967

== ENCOUNTER 2023-10-18 08:43 | Day surgery (SDC) | payer MEDICAID ==
[2023-10-18] MEDS: SODIUM CHLORIDE 0.9% 500 ML 500 ML IV ONE (08:56)
[2023-10-18 09:07] VITALS: TEMP 97.6
[2023-10-18] MEDS ORDERED: fentaNYL (PF) 50 MCG/ML 2 ML AMP ONE (10:23)
[2023-10-18] MEDS: BENZOCAINE SPRAY 1 CAN MUCOUS MEM ONE ×2 (10:36→10:37)
[2023-10-18] MEDS: MIDAZOLAM 2 MG/2 ML VIAL IVP ONE (10:38)
[2023-10-18] MEDS: fentaNYL (PF) 50 MCG/ML 2 ML AMP IVP ONE (10:38)
--- NOTE | 2023-10-18 11:13 | P.TEE ---
Date of Procedure: 10/18/23 Anesthesia: MAC Description of Procedure(s): Indication: Recurrent TIA Procedure note: After obtaining informed consent transesophageal echocardiogram was performed via the left lateral position using an Omni plane probe local and IV sedation were obtained using Xylocaine spray 2 mg of Versed and 25 mcg of fentanyl patient tolerated the procedure well without any obvious blood complications total sedation time was 10 minutes. Findings: There is no intracardiac thrombus within the left atrial appendage left atrium right atrium right ventricular left ventricle . Interatrial septum appears aneurysmally dilated with significant aezin-gw-lzla shunt with agitated saline contrast study. We did not appreciate any vqew-zr-[id number] shunt. Mitral valve is anatomically normal there is mild mitral regurgitation noted Tricuspid valve is normal Left ventricle has normal size and systolic function Aortic root appears normal Aortic valve is a 3 leaflet valve there is no evidence of aortic stenosis or regurgitation. Conclusions: Aneurysmal interatrial septum with significant isobn-vc-[id number] shunt. I am going to refer the patient to Dr. Gomez for PFO closure
[2023-10-18 11:55] VITALS: RESP 16
[2023-10-18 12:00] VITALS: BP 145/73; PULSE 69
== END 2023-10-18 11:54 | disposition home or self-care (01) ==
LOC: CATHCVL 08:43
PROVIDERS: ATTEND Internal Medicine Cardiovascular Disease
DX: I35.0 Nonrheumatic aortic (valve) stenosis
CPT/HCPCS: 93312; 93320; 93325

== ENCOUNTER → 2023-11-01 | Outpatient (CLI) | payer MEDICAID ==
[2023-11-01 15:17] LABS: HCT 41.5 % (37.2-46.3); HGB 13.4 g/dL (12.0-15.0); MCH 31.2 pg (27.0-32.0); MCHC 32.3 g/dL (32.0-37.0); MCV 96.5 FL (80.0-97.0); Mean Platelet Volume 10.5 FL (9.5-12.2); NRBC Per 100 WBC 0 X 10*3/uL (0.00-0.01); Platelet Count 328 X 10*3/uL (140-440); RDW 13.1 % (11.5-14.5); WBC 6.13 X 10*3/uL (4.50-10.00)
[2023-11-01 15:30] LABS: ALT 28 U/L (8-44); AST 26 U/L (13-35); BUN/Creat Ratio 22.86 Ratio (12.00-20.00); Calcium 9.4 mg/dL (8.7-10.3); Carbon Dioxide 24.5 mmol/L (21.6-31.8); Chloride 104 mmol/L (96-109); Glucose 87 mg/dL (70-110); LDL Cholesterol,Calculated 75.7 mg/dL (0.0-131.0); Potassium 4.5 mmol/L (3.5-5.5); Sodium 140 mmol/L (135-145); VLDL Calculation 13.82 mg/dL (5.00-40.00)
== END | disposition home or self-care (01) ==
LOC: LABWHC1 09:24
PROVIDERS: ATTEND Family Medicine
DX: I10 Essential (primary) hypertension (principal); E78.5 Hyperlipidemia, unspecified
CPT/HCPCS: 36415; 80048; 80061; 83036; 84450; 84460; 85027

== ENCOUNTER 2023-11-14 10:24 | Day surgery (SDC) | payer MEDICAID ==
[~2023-11-14 10:24] MED LIST changes: +ALPRAZolam 0.25 MG TAB PO PRN; +ALPRAZolam 0.5 MG TAB PO PRN; -DEXAMETHASONE SOD PHOSPHATE 4 MG/ML 1 ML VIAL IV ONE; -DEXAMETHASONE SOD PHOSPHATE 4 MG/ML 1 ML VIAL ONE; +HEPARIN SODIUM,PORCINE (1 ML) 2,500 UNIT in SODIUM CHLORIDE 0.9% 250 ML IRRIGATION PRN; +HEPARIN SODIUM,PORCINE 10,000 UNIT in SODIUM CHLORIDE 0.9% 1,000 ML IRRIGATION PRN; -HYDROmorphone 0.5 MG/0.5 ML SYRINGE IVP PRN; -LACTATED RINGERS 1,000 ML IV SCH; -LIDOCAINE 1% (10MG/ML) FOR IV START INTRADERMA PRN; -LIDOCAINE 2% INJ 20 MG/ML (2 ML VIAL) ONE; -MIDAZOLAM 2 MG/2 ML VIAL IVP ONE; -MIDAZOLAM 2 MG/2 ML VIAL ONE; +NITROGLYCERIN SL TABS 0.4 MG TAB SUBLINGUAL PRN; -ONDANSETRON 4 MG/2 ML VIAL IVP ONE; -PROPOFOL 10 MG/ML 20 ML VIAL IV ONE; -ROPIVACAINE 5 MG/ML 30 ML VIAL ONE; -SUCCINYLCHOLINE CHLORIDE 200 MG/10 ML VIAL IV ONE; -fentaNYL (PF) 50 MCG/ML 2 ML AMP ONE
[2023-11-14] MEDS: IV FLUID CONTINUATION 1,000 ML IV ONE (10:53)
[2023-11-14] MEDS: SODIUM CHLORIDE 0.9% 1,000 ML in EMPTY BAG 1 BAG IV SCH (10:53)
[2023-11-14] MEDS: ASPIRIN 325 MG TAB PO ONE (10:54)
[2023-11-14] MEDS: MIDAZOLAM 2 MG/2 ML VIAL IVP ONE ×2 (12:27→12:41)
[2023-11-14] MEDS: fentaNYL (PF) 50 MCG/ML 2 ML AMP IVP ONE (12:27)
[2023-11-14] MEDS: LIDOCAINE 1% INJ 10MG/ML (20 ML MDV) SQ ONE (12:31)
[2023-11-14] MEDS: HEPARIN SODIUM 1,000 UN/ML (10ML VL) IVP ONE (12:38)
--- NOTE | 2023-11-14 13:24 | P.PCN ---
Description of Procedure: TRANSCATHETER CLOSURE OF INTERATRIAL COMMUNICATION PROCEDURES PERFORMED: 1. Closure of interatrial communication via a right femoral venous percutaneous approach using a 25mm Amplatzer Occluder device. 2. Intracardiac echocardiography using an 8-[place] AcuNav ultrasound catheter 3. Right femoral vein access under direct U/S visualization x 2 OPERATORS: 1. Sukhi Gomez DO interventional cardiology INDICATIONS: History of thromboembolic CVA Interatrial communication/ PFO with color flow across inter-atrial septum and positive bubble study by TEOFILO. SEDATION: Under my direct supervision the patient was administered moderate conscious sedation with Versed and Fentanyl for a total of 42 minutes. PRPOCEDURE SUMMARY: Prior to sedation, the risks, benefits and alternatives of the procedure were discussed with the patient in detail and all questions were answered to the patient's satisfaction. Both verbal and written consents were obtained. The patient was transported to the cardiac catheterization suite and prepped and draped in the usual sterile fashion for access to the right groin. The patient received conscious sedation in the form of Versed and Fentanyl intravenously. 2% lidocaine was infused into the right groin for local anesthesia. Then, under direct ultrasound visualization, right femoral vein was accessed using micropuncture technique and a 6French and an 8-[place]atorial [place] 11 cm sheaths were placed into the right femoral vein. The 8-[place] AcuNav ICE ultrasound catheter was then advanced through into the right atrium where intracardiac echocardiography was performed. PRE PROCEDURE ULTRASOUND: This demonstrated no evidence of pericardial effusion. It demonstrated normal appearing aortic and mitral valves. Overall the left ventricular function and chamber size appeared within normal limits. The LV function appeared preserved with no significant wall motion abnormalities. There was color flow visualized across the inter-atrial septum with ICE. The tricuspid valve appeared normal and the RV appeared normal in size. The visualized portions of the left atrium and left atrial appendage demonstrated no significant abnormalities. After images were obtained with the ICE catheter, a 6-[place] multipurpose catheter was inserted into the RFV and was used to cross the septum into the left atrium. Heparin was given to keep ACT > 200-250. A 0.035 Byrd wire was placed in the L superior pulmonary vein. The catheter was then removed and the 6-[place]atorial [place] sheath was also removed over the Amplatzer wire. This was exchanged for a 9 [place] [id number] delivery sheath with introducer. This was advanced to the septal defect where the sheath was then advanced across the defect over the Byrd wire. The introducer was removed and blood was drawn. The Byrd wire was then removed. A 25mm Amplatzer PFO occluder device was then opened, prepped and then loaded into the sheath. Under fluoroscopy and ultrasound guidance, the Amplatzer occluder was advanced through the edge of the sheath. The left atrial side was deployed and was pulled back to the interatrial septum and the right atrial side was deployed. With the device still captured, intracardiac echocardiography was performed demonstrating good capture on all 6 rims with no impingement on valvular function. The delivery system was then released and removed. The final intracardiac echocardiographic images were again once obtained. POST DELIVERY INTRACARDIAC ECHOCARDIOGRAPHIC IMAGES: This demonstrated again no evidence of pericardial effusion. All 6 rims were visualized and demonstrated adequate purchase and the device in stable position. There was no further evidence of interatrial communication by color flow Doppler. The aortic and mitral valves appeared to be functioning appropriately with no impingement of flow. Again overall the left ventricular function appeared within normal limits and again, no effusion was noted. At this point, 8-[place] ICE catheter and the torque-view sheath was removed. A Z stitch was placed to achieve hemostasis. The patient was transferred to the CVSU in stable condition. COMPLICATIONS: None. FINAL IMPRESSIONS: Successful closure of a PFO with a 25mm Amplatzer PFO occluder device. No evidence of complication, arrhythmia or other noted. RECOMMENDATIONS: A limited transthoracic echocardiogram will be obtained in the morning. The patient will be transferred to the floor, monitoring overnight. Will plan for discharge in the morning. Aspirin daily, Plavix 75 mg daily, followup in the clinic in approximately 1 week as previously scheduled.
[2023-11-14] MEDS: SODIUM CHLORIDE 0.9% 1,000 ML IV SCH (20:05)
[2023-11-15 07:50] LABS: Basophils % (A) 1 %; Eosinophils # (A) 0.2 k/uL (0-0.7); Eosinophils % (A) 2 %; HCT 46.4 % (34.0-46.0); HGB 14.6 gm/dL (11.4-16.0); Hypochromasia Slight; Lymphocytes # (A) 2.2 k/uL (1.0-4.8); Lymphocytes % (A) 30 %; MCHC 31.4 g/dL (31.0-37.0); MCV 98.9 fL (80.0-100.0); Mean Platelet Volume 7.4; Monocytes # (A) 0.5 k/uL (0-1.0); Monocytes % (A) 7 %; Neutrophils # (A) 4.4 k/uL (1.3-7.7); Neutrophils % (A) 59 %; Platelet Count 301 k/uL (150-450); RBC 4.69 m/uL (3.80-5.40); RDW 12.7 % (11.5-15.5); WBC 7.4 k/uL (3.8-10.6)
[2023-11-15 08:04] LABS: African American GFR (CKD) >90 (>60 ml/min/1.73 sqM); Anion Gap 5 mmol/L; Blood Urea Nitrogen 16 mg/dL (7-17); Calcium 9.5 mg/dL (8.4-10.2); Carbon Dioxide 30 mmol/L (22-30); Chloride 105 mmol/L (98-107); Glucose 91 mg/dL (74-99); Non-African American GFR(CKD) >90 (>60 ml/min/1.73 sqM); Sodium 140 mmol/L (137-145)
[2023-11-15] MEDS: CLOPIDOGREL 75 MG TAB PO SCH (09:31)
[2023-11-15] MEDS: ASPIRIN 325 MG TAB PO SCH (09:32)
[2023-11-15 10:42] VITALS: RESP 15
--- NOTE | 2023-11-15 13:45 | CA ---
Transthoracic Echo Report Name: Aletha Hernandez Age: 63 Gender: F : 1960 Exam Date: 11/15/2023 10:48 Exam Location: [place] [facility] Ht (in): 63 Wt (lb): 173 Ordering Physician: Sukhi Gomez DO ([id number]) Attending/Referring Phys: Manager Academic Melanie Rasmussen RDCS Procedure CPT: Indications: Post ASD/PFO Insertion Cardiac Hx: Focused echocardiogram for post Amplatzer Occluder Device Technical Quality: Fair Contrast 1: Total Dose (mL): Contrast 2: Total Dose (mL): MEASUREMENTS (Male / Female) Normal Values 2D ECHO LV Diastolic Diameter PLAX 4.6 cm 4.2 - 5.9 / 3.9 - 5.3 cm LV Systolic Diameter PLAX 2.9 cm IVS Diastolic Thickness 0.9 cm 0.6 - 1.0 / 0.6 - 0.9 cm LVPW Diastolic Thickness 0.8 cm 0.6 - 1.0 / 0.6 - 0.9 cm LV Relative Wall Thickness 0.4 DOPPLER TR Peak Velocity 253.2 cm/s TR Peak Gradient 25.7 mmHg PV Peak Velocity 84.4 cm/s PV Peak Gradient 2.8 mmHg FINDINGS Left Ventricle Left ventricular ejection fraction is estimated at 60-65 %. Left ventricular cavity size normal. Left ventricular wall thickness normal. No obvious regional wall motion abnormalities. Right Ventricle Normal right ventricular size and function. Unable to estimate the right ventricular systolic pressure. Right Atrium Right atrium not assessed. Status post Amplatzer Occluder Device (11/14/23). Left Atrium Left atrium not assessed. Mitral Valve Structurally normal mitral valve. Trace mitral regurgitation. Aortic Valve Trileaflet aortic valve. No aortic valve stenosis or regurgitation. Tricuspid Valve Structurally normal tricuspid valve. No tricuspid regurgitation. Pulmonic Valve Pulmonic valve not well visualized. No pulmonic stenosis. No pulmonic regurgitation. Pericardium No pericardial effusion. Aorta Aortic root and proximal ascending aorta not assessed. CONCLUSIONS Diagnosis ASD status post closure of ASD Normal LV size and function ejection fraction 60% Normal RV size and function Intra atrial septal occlusion device, stable, no flow across the fossa ovalis No pericardial effusion postprocedure Previewed by: Dr. Rojas Tse MD (Electronically Signed) Final Date: 15 November 2023 13:44
[2023-11-15 14:03] VITALS: BP 137/78; PULSE 75; TEMP 97.9
--- NOTE | 2023-11-15 15:26 | P.DS ---
Providers Attending physician: Sukhi Gomez DO Primary care physician: [facility] Course: Patient is pleasant 63-year-old female with a history of stroke and PFO with aneurysmal atrial septum who presented for elective PFO closure. Patient understood went successful PFO closure with Amplatzer 25 mm device 11/13. She denies any femoral pain and no significant hematoma. She has been on aspirin and Plavix. Repeat echo shows no evidence of any abnormalities with well-placed closure device. She is stable for discharge home on 11/14. Plan - Discharge Summary Discharge Rx Participant: No New Discharge Prescriptions: No Action lisinopriL [Zestril] 10 mg PO DAILY ALPRAZolam [Xanax] 0.25 mg PO TID PRN PRN Reason: Anxiety Clopidogrel [Plavix] 75 mg PO DAILY Aspirin 81 mg PO DAILY #30 tab Simvastatin [Zocor] 40 mg PO HS #30 tab Discharge Medication List ALPRAZolam [Xanax] 0.25 mg PO TID PRN 05/08/15 [History] lisinopriL [Zestril] 10 mg PO DAILY 05/08/15 [History] Aspirin 81 mg PO DAILY #30 tab 09/12/23 [Rx] Simvastatin [Zocor] 40 mg PO HS #30 tab 09/12/23 [Rx] Clopidogrel [Plavix] 75 mg PO DAILY 10/16/23 [History]
--- NOTE | 2023-11-19 08:37 | XR ---
EXAMINATION TYPE: XR chest 2V DATE OF EXAM: 11/15/2023 COMPARISON: 09/11/2023 INDICATION: ASD placement TECHNIQUE: Frontal and lateral views of the chest are obtained. FINDINGS: The heart size is normal. The pulmonary vasculature is normal. The lungs are clear. Septal patch has been placed. IMPRESSION: 1. No acute pulmonary process. [facility], Workstation: [facility], 11/19/2023 8:35 AM
== END 2023-11-15 16:25 | disposition home or self-care (01) ==
LOC: CATHCVL 10:24 → 3SCARD 13:11 → CATHCVL 11-15 16:25
PROVIDERS: ATTEND Internal Medicine
DX: Q21.10 Atrial septal defect, unspecified
CPT/HCPCS: 71046; 80048; 85025; 86850; 86900; 86901; 93306; 93580; 93662

== ENCOUNTER → 2024-03-13 | Outpatient (CLI) | payer MEDICAID ==
[2024-03-13 10:23] LABS: Appearance,Urine Clear (Clear); Bilirubin,Urine Negative (Negative); Blood,Urine Moderate (Negative); Color,Urine Yellow; Glucose,Urine (UA) Negative (Negative); Hyaline Casts,Urine 2 /lpf (0-2); Ketones,Urine Negative (Negative); Leukocyte Esterase,Urine Negative (Negative); Mucus,Urine Many /hpf; Nitrite,Urine Negative (Negative); PH, Urine 5.5 (5.0-8.0); Protein,Urine Trace (Negative); RBC,Urine 4 /hpf (0-5); Specific Gravity,Urine 1.034 (1.001-1.035); Squamous Epithelial Cell,Urine 2 /hpf (0-4); WBC,Urine 3 /hpf (0-5)
[2024-03-13 15:53] LABS: HCT 42.5 % (37.2-46.3); HGB 13.8 g/dL (12.0-15.0); MCH 30.7 pg (27.0-32.0); MCHC 32.5 g/dL (32.0-37.0); MCV 94.7 FL (80.0-97.0); Mean Platelet Volume 10.6 FL (9.5-12.2); NRBC Per 100 WBC 0 X 10*3/uL (0.00-0.01); Platelet Count 311 X 10*3/uL (140-440); RBC 4.49 X 10*6/uL (4.10-5.20); RDW 12.9 % (11.5-14.5); WBC 7.61 X 10*3/uL (4.50-10.00)
[2024-03-13 16:17] LABS: ALT 33 U/L (8-44); AST 26 U/L (13-35); Albumin 4.2 g/dL (3.8-4.9); Albumin/Globulin Ratio 1.83 Ratio (1.60-3.17); Alkaline Phosphatase 103 U/L (41-126); BUN/Creat Ratio 22.38 Ratio (12.00-20.00); Blood Urea Nitrogen 17.9 mg/dL (9.0-27.0); Calcium 9.3 mg/dL (8.7-10.3); Chloride 105 mmol/L (96-109); Chol/HDL Ratio 2.36 Ratio; Globulin 2.3 g/dL (1.6-3.3); Glucose 87 mg/dL (70-110); LDL Cholesterol,Calculated 82.4 mg/dL (0.0-131.0); Sodium 140 mmol/L (135-145); Total Bilirubin 0.4 mg/dL (0.3-1.2); Total Protein 6.5 g/dL (6.2-8.2); VLDL Calculation 13.92 mg/dL (5.00-40.00)
== END | disposition home or self-care (01) ==
LOC: LABWHC1 09:03
PROVIDERS: ATTEND Family Medicine
DX: Z00.00 Encounter for general adult medical examination without abnormal findings (principal)
CPT/HCPCS: 36415; 80053; 80061; 81001; 82306; 83036; 83525; 84443; 85027